=== PATIENT | female | born 1975 | race Caucasian/White ===

== ENCOUNTER → 2017-05-23 | Outpatient (CLI) | payer MEDICAID, SELFPAY ==
[~2017-05-23] MED LIST: ACET50TAOT PO; COMBAER6 INH; FLUT44IN INH; IBUPOTC PO; PRED20TA PO; PROAAER10 INH
== END ==
LOC: M OUTALCOH 12:37
PROVIDERS: ATTEND Psychiatry & Neurology Psychiatry
DX: F10.20 Alcohol dependence, uncomplicated (principal); F15.20 Other stimulant dependence, uncomplicated

== ENCOUNTER 2017-06-01 15:36 | Emergency (ER) | payer OTHER ==
[2017-06-01] MEDS ORDERED: LORazepam 2 MG/ML VIAL (J2060) IM STA (15:49)
[2017-06-01 16:26] LABS: MEAN CORPUSCULAR HGB CONC 34.3 g/dl (32.0-36.5); MEAN CORPUSCULAR VOLUME 93.3 fl (80.0-96.0); RED CELL DISTRIBUTION WIDTH 12.5 % (11.5-14.5); WHITE BLOOD COUNT 19.5 10^3/uL (4.0-10.0)
[2017-06-01 16:56] LABS: ALBUMIN 4.1 GM/DL (3.2-5.2); ALBUMIN/GLOBULIN RATIO 1.14 (1.00-1.93); ALKALINE PHOSPHATASE 75 U/L (45-117); ALT/SGPT 18 U/L (12-78); ANION GAP 11 MEQ/L (8-16); AST/SGOT 13 U/L (15-37); BILIRUBIN,DIRECT < 0.1 MG/DL (0.0-0.2); BILIRUBIN,TOTAL 0.2 MG/DL (0.2-1.0); BLOOD UREA NITROGEN 9 MG/DL (7-18); CALCIUM LEVEL 8.8 MG/DL (8.5-10.1); CARBON DIOXIDE LEVEL 24 MEQ/L (21-32); CHLORIDE LEVEL 109 MEQ/L (98-107); CREATININE FOR GFR 0.76 MG/DL (0.55-1.02); GLOMERULAR FILTRATION RATE > 60.0 (>58); GLUCOSE, FASTING 114 MG/DL (70-105); POTASSIUM SERUM 3.7 MEQ/L (3.5-5.1); SODIUM LEVEL 144 MEQ/L (136-145); TOTAL PROTEIN 7.7 GM/DL (6.4-8.2)
[2017-06-01 21:31] LABS: METHADONE URINE NEGATIVE (NEGATIVE)
[2017-06-02 04:38] VITALS: BP 153/90
== END 2017-06-02 04:44 | disposition home or self-care (01) ==
LOC: M ED 15:36
DX: R45.1 Restlessness and agitation (principal); F10.10 Alcohol abuse, uncomplicated
CPT/HCPCS: 80048; 80076; 80307; 80320; 80329; 84443; 85027; 96372; 99284; J2060

== ENCOUNTER 2017-07-08 09:44 | Observation (INO) | payer OTHER, SELFPAY ==
[~2017-07-08] VITALS: Ht 163.8 cm; Wt 70.2 kg
[2017-07-08] MEDS ORDERED: PROAAER10 INH (10:00)
[2017-07-08] MEDS ORDERED: methylPREDNISolone INJ 125 MG/2 ML VIAL (J2930) IM ONE (10:30)
[2017-07-08] MEDS: IPRATROPIUM 0.5MG/ALBUTEROL 2.5MG INH SOL UD 3ML (DUONEB)(J7620) NEB SCH ×5 (10:37→20:15)
[2017-07-08] MEDS ORDERED: MAG SULF 1GM/100ML (MAG RUN) 1 GM in APPROPRIATE DILUENT 1 EA IV ONE (11:45)
--- NOTE | 2017-07-08 12:08 | REP ---
Clinical: Shortness of breath . Comparison: None . Technique: PA and lateral. Findings: The mediastinum and cardiac silhouette are normal. The lung chatterjee are clear and without acute consolidation, effusion, or pneumothorax. The skeletal structures are intact and normal. Impression: 1. No acute cardiopulmonary process. Signed by Rich Oliveira MD 07/08/2017 12:00 P
[2017-07-08] MEDS ORDERED: IBUPOTC PO (13:56)
[2017-07-08] MEDS ORDERED: ACET50TAOT PO (13:56)
[2017-07-08] MEDS ORDERED: ONDANSETRON 4MG/2ML VIAL (J2405) IV PRN (14:45)
--- NOTE | 2017-07-08 15:04 | HPEPDOC ---
[facility] Medical History & Physical Date of Admission Jul 08, 2017 History and Physical ATTENDING: Dr. Philippe PCP: None CC: SOB HPI: 41yoF with a past medical history significant for Asthma who states she moved back from [place] 2 mo ago. States she has h/o bronchitis last 2 years ago, took steroids at that time. [place] from [place], there is a wood stove where she is staying, she states her step daughter was ill with a cold. She states she felt well last weekend, but then started to feel sick with cold symptoms, subjective fever, non productive cough, clear rhinorrhea, denies CP. Denies any weakness, fatigue, EDWARDS, palpitations, abdominal pain, N/V/D or changes in bowel or bladder habits. Upon presentation to the hospital the patient was found to have asthma exacerbation, thus the hospitalist team was consulted. PMHx: Asthma H/O HTN. No meds as outpt. NIDDM. diet controlled. H/O HLD. diet. Allergic rhinitis peripheral neuropathy (idiopathic per pt) PSHX: tympanostomy tubes tonsillectomy adenoidectomy Rt arm muscle tear/abscess secondary to dog bite. C Section x 2 ankle debridement back surgery tobacco use SOCHX: Resides in: [facility] Marital Status: Kids: 2 Tobacco use: daily smoker ETOH: several drinks weekends. Illicit Drugs: "Sometimes" Recent travel: moved back from [place] 2 mo ago. Advanced directives: none FAMHX: Children: Alive, well ROS: As noted in HPI, otherwise 11pt ROS of systems reviewed and remarkable only for LMP 06/07/17. PE: GEN: 41yoF, appears stated age. Well-nourished, well developed. Alert and oriented x 3. Pleasant, interactive. HEENT: Normocephalic, atraumatic. Pupils are equal, round, and reactive to light. Extraocular movements are intact. No nystagmus appreciated. Sclera are nonicteric. Conjunctiva without injection. Nose midline. Nasal turbinates without bogginess. EACs both patent BL. No facial asymmetry. Moist mucous membranes. Dentition fair. Pharynx pink and moist, no cobblestoning. Neck supple , trachea midline. No lymphadenopathy or thyromegaly appreciated. CHEST: Regular rate and rhythm, +S1, +S2 LUNGS: Decreased BS bilaterally. Diffuse inspiratory/expiratory wheezes. No rales, or rhonchi. Becomes SOB with talking. No accessory muscle use. ABD: Round, soft, non-tender, non-distended. +Bowel sounds throughout. No rebound or guarding. No costovertebral angle tenderness. EXT: Pulses 2+ bilaterally dorsalis pedis and radial. No lower extremity edema appreciated. SKIN: [place], dry, warm. Capillary refill <2sec. No rashes. NEURO: Alert and oriented x 3. Cranial nerves III-XII are intact. No focal deficits appreciated. CXR: 1. No acute cardiopulmonary process. EKG. pending. CBC pending. CMP pending. TSH pending Peripheral smear pending. respiratory panel pending. A&P: 41yoF with a past medical history significant for Asthma who states she moved back from [place] 2 mo ago. States she has h/o bronchitis last 2 years ago, took steroids at that time. States she moved back from [place], there is a wood stove where she is staying, she states her step daughter was ill with a cold. She states she felt well last weekend, but then started to feel sick with cold symptoms, subjective fever, non productive cough, clear rhinorrhea, denies CP. 1. The patient will be admitted to /S for at least [address] Philippe's service. Pt is discussed with Dr Thompson. 2. Asthma exacerbation. Labs pending. Respiratory panel pending. Duonebs. IV Solumedrol 60 Q6hr. Acapella. 3. Tobacco use. Pt adamantly declines Nicoderm/Nicorette gum. 4. H/O HTN. No meds as outpt. monitor. 5. H/O NDDM. Diet control as outpt. DVT prophylaxis. Lovenox. The patient is a Full code Vital Signs Vital Signs Date Time Temp Pulse Resp B/P (MAP) Pulse Ox O2 Delivery O2 Flow Rate FiO2 07/08/17 11:07 94 Room Air 07/08/17 10:44 07/08/17 10:41 88 07/08/17 09:44 97.8 18 Laboratory Data Labs 24H pending at this time. Home Medications Scheduled PRN Acetaminophen (Acetaminophen) 500 Mg Tab, 500 MG PO Q4H PRN for PAIN Albuterol Sulfate (Proair Hfa) 108 Mcg/Act Aer, 2 PUFF INH QID PRN for SHORTNESS OF BREATH Ibuprofen (Ibuprofen) 200 Mg Tab, 600 MG PO Q6H PRN for PAIN Allergies Coded Allergies: No Known Allergies (Unverified , 07/08/17) Marlena Link Jul 08, 2017 15:04
[2017-07-08 15:32] LABS: BASO % 0.2 % (0.0-1.0); IMMATURE GRANULOCYTE % 0.5 % (0-0); LYMPH # 0.6 10^3/uL (1.5-4.5); MEAN CORPUSCULAR HEMOGLOBIN 31.7 pg (27.0-33.0); MEAN CORPUSCULAR HGB CONC 33.7 g/dl (32.0-36.5); MONO # 0.1 10^3/uL (0.0-0.8); MONO % 0.6 % (0.0-5.0); NEUTROPHILS # 11.7 10^3/uL (1.8-7.7); NEUTROPHILS % 93.7 % (36.0-66.0); PLATELET COUNT, AUTOMATED 260 10^3/uL (150-450); RED CELL DISTRIBUTION WIDTH 13.2 % (11.5-14.5); WHITE BLOOD COUNT 12.5 10^3/uL (4.0-10.0)
[2017-07-08 15:36] LABS: REASON FOR REVIEW COMPREHENSIVE REVIEW
[2017-07-08 16:18] LABS: ALBUMIN 3.6 GM/DL (3.2-5.2); ALBUMIN/GLOBULIN RATIO 0.95 (1.00-1.93); ALKALINE PHOSPHATASE 107 U/L (45-117); ALT/SGPT 22 U/L (12-78); ANION GAP 12 MEQ/L (8-16); AST/SGOT 15 U/L (7-37); BILIRUBIN,TOTAL 0.2 MG/DL (0.2-1.0); BLOOD UREA NITROGEN 11 MG/DL (7-18); CALCIUM LEVEL 9.3 MG/DL (8.5-10.1); CARBON DIOXIDE LEVEL 23 MEQ/L (21-32); CHLORIDE LEVEL 103 MEQ/L (98-107); CREATININE FOR GFR 0.98 MG/DL (0.55-1.02); GLOMERULAR FILTRATION RATE > 60.0 (>58); GLUCOSE, FASTING 206 MG/DL (70-105); MAGNESIUM LEVEL 2.1 MG/DL (1.8-2.4); POTASSIUM SERUM 3.7 MEQ/L (3.5-5.1); SODIUM LEVEL 138 MEQ/L (136-145); TOTAL PROTEIN 7.4 GM/DL (6.4-8.2)
[2017-07-08 16:30] VITALS: BP 165/91
[2017-07-08] MEDS: ENOXAPARIN 40 MG/0.4 ML SYRINGE (J1650) SC SCH (16:49)
[2017-07-08] MEDS: methylPREDNISolone INJ 125 MG/2 ML VIAL (J2930) IV SCH ×2 (16:50→22:00)
[2017-07-08] MEDS: ACETAMINOPHEN TAB 650MG DOSE (2X325MG) PO PRN ×2 (16:50→21:59)
[2017-07-08 18:20] VITALS: O2SAT 92
[2017-07-08] MEDS ORDERED: ALPRAZolam 0.25 MG TAB PO PRN (18:30)
[2017-07-08] MEDS ORDERED: OXAZEPAM 10 MG CAP PO PRN (18:45)
[2017-07-08 22:00] VITALS: BP 164/88
[2017-07-08] MEDS ORDERED: BENZONATATE 100 MG CAP PO ONE (23:15)
[2017-07-08] MEDS ORDERED: MAGIC MOUTHWASH SUSPENSION BTL SS ONE (23:15)
[2017-07-08] MEDS: ALBUTEROL SULFATE 2.5 MG/0.5 ML INH NEB SOLN INH PRN (23:37)
[2017-07-09] MEDS: methylPREDNISolone INJ 125 MG/2 ML VIAL (J2930) IV SCH ×2 (05:42→11:02)
[2017-07-09 06:00] VITALS: BP 157/84
[2017-07-09 06:03] VITALS: O2SAT 95
[2017-07-09] MEDS: IPRATROPIUM 0.5MG/ALBUTEROL 2.5MG INH SOL UD 3ML (DUONEB)(J7620) NEB SCH ×2 (06:12→11:18)
[2017-07-09] MEDS: ACETAMINOPHEN TAB 650MG DOSE (2X325MG) PO PRN (06:20)
[2017-07-09 06:24] LABS: BASO % 0.1 % (0.0-1.0); LYMPH # 1.1 10^3/uL (1.5-4.5); LYMPH % 8.4 % (24.0-44.0); MEAN CORPUSCULAR HEMOGLOBIN 32.4 pg (27.0-33.0); MEAN CORPUSCULAR HGB CONC 34.1 g/dl (32.0-36.5); MONO # 0.2 10^3/uL (0.0-0.8); MONO % 1.6 % (0.0-5.0); NEUTROPHILS % 88.9 % (36.0-66.0); PLATELET COUNT, AUTOMATED 258 10^3/uL (150-450); RED CELL DISTRIBUTION WIDTH 13.2 % (11.5-14.5); WHITE BLOOD COUNT 13.5 10^3/uL (4.0-10.0)
[2017-07-09 06:56] LABS: ANION GAP 8 MEQ/L (8-16); BLOOD UREA NITROGEN 12 MG/DL (7-18); CALCIUM LEVEL 9.7 MG/DL (8.5-10.1); CARBON DIOXIDE LEVEL 24 MEQ/L (21-32); CHLORIDE LEVEL 107 MEQ/L (98-107); CREATININE FOR GFR 0.62 MG/DL (0.55-1.02); GLOMERULAR FILTRATION RATE > 60.0 (>58); GLUCOSE, FASTING 151 MG/DL (70-105); MAGNESIUM LEVEL 2.2 MG/DL (1.8-2.4); SODIUM LEVEL 139 MEQ/L (136-145)
[2017-07-09] MEDS: ALBUTEROL SULFATE 2.5 MG/0.5 ML INH NEB SOLN INH PRN (07:25)
[2017-07-09] MEDS: ENOXAPARIN 40 MG/0.4 ML SYRINGE (J1650) SC SCH (09:00)
[2017-07-09] MEDS ORDERED: INFLUENZA QUADRIVALENT PF VACCINE 0.5ML SYRINGE (90686) IM ONE (09:00)
[2017-07-09] MEDS ORDERED: PRED20TA PO (09:49)
[2017-07-09] MEDS ORDERED: FLUT44IN INH (09:49)
[2017-07-09] MEDS ORDERED: COMBAER6 INH (09:49)
--- NOTE | 2017-07-09 10:58 | DS.PDOC ---
Discharge Summary General Date of Admission Jul 08, 2017 at 14:41 Date of Discharge 07/09/2017 Attending Physician: MELISSA FLEMING MD Specialist/Consultants Involve No PCP; will set up appointment with residency clinic Discharge Summary PROCEDURES PERFORMED DURING STAY: None. ADMITTING DIAGNOSES: 1. Asthma exacerbation. DISCHARGE DIAGNOSES: 1. Rhinovirus/enterovirus infection upper respiratory infection 2. Post infectious bronchospasm Vs Initial presentation of Asthma . Will need PFTs as an outpatient. 3. Psychiatric disorder 4. History of alcohol Abuse COMPLICATIONS/CHIEF COMPLAINT: Asthma Attack. HISTORY OF PRESENT ILLNESS: Patient states she has no noted history of asthma. States she has history of bronchitis last 2 years ago, took steroids at that time. States she moved back from [place], there is a wood stove where she is staying , she states her step daughter was ill with a cold. She states she felt well last weekend, but then started to feel sick with cold symptoms, subjective fever , non productive cough, clear rhinorrhea. Upon presentation to the hospital the patient was found to have bronchospasm thought to be post infectious bronchospasm due to upper respiratory tract viral infection Vs initial presentation of asthma. HOSPITAL COURSE: Patient was admitted under observational status. Chest x-ray was performed, findings documented below. Daily CBC with differential and BMP were performed, notable for elevated white count with left shift. Respiratory virus panel from nasal swap showed rhinovirus/enterovirus infection. Patient was treated with methylprednisolone, albuterol, and duoneb albuterol/ipratropium ; undisclosed psychiatric condition (mostly likely anxiety) managed with alprazolam and oxazepam as needed; treated nausea with ondansetron as needed. Patient improved clinically and was stable for discharge. DISCHARGE MEDICATIONS: Please see below. ALLERGIES: Please see below. PHYSICAL EXAMINATION ON DISCHARGE: VITAL SIGNS: Please see below. GENERAL: Well-appearing female seated on bed, appears stated age, well nourished , well developed, no acute distress HEENT: Atraumatic, normocephalic, PERRL, EOMI, oral mucosa appears pink and moist, nasal septum appears midline, nares are patent NECK: Supple, trachea midline, no lymphadenopathy CARDIOVASCULAR EXAMINATION: Normal S1/S2; regular rate; no rubs, murmurs, gallops RESPIRATORY EXAMINATION: Inspiratory and expiratory wheezes ABDOMINAL EXAMINATION: Soft, non-tender, bowel sounds appreciated EXTREMITIES: Moves all extremities SKIN: Non-jaundice, multiple tattoos appreciated NEUROLOGICAL EXAMINATION: CN II-XII grossly intact PSYCHIATRIC EXAMINATION: Very pleasant mood LABORATORY DATA: Please see below. IMAGING: Chest X-Ray Impression: 1. No acute cardiopulmonary process. PROGNOSIS: Good. ACTIVITY: As tolerated. DIET: Regular diet. DISCHARGE PLAN: Home. DISPOSITION: Home. DISCHARGE INSTRUCTIONS: 1. Prednisone 40mg daily for 3 days. 2. Combivent 4 times per day and as needed. 3. Flovent one puff twice a day. 4. Follow up with PCP at residency clinic. 5. Attend pre-scheduled appointment with behavioral health at 2PM on 07/09/2017. ITEMS TO FOLLOWUP ON ON OUTPATIENT: 1. Further evaluation for asthma diagnosis; could consider pulmonary function tests. DISCHARGE CONDITION: Stable. TIME SPENT ON DISCHARGE: Greater than 30 minutes. Vital Signs/I&Os Vital Signs Date Time Temp Pulse Resp B/P (MAP) Pulse Ox O2 Delivery O2 Flow Rate FiO2 07/09/17 06:03 95 Room Air 07/09/17 06:03 102 07/09/17 06:00 97.9 15 157/84 (108) I&O- Last 24 Hours up to 6 AM 07/10/17 06:00 Intake Total 0 ml Output Total 0 ml Balance 0 ml Laboratory Data Labs 24H Laboratory Tests 2 07/08/17 15:25: Immature Granulocyte % (Auto) 0.5H, White Blood Count 12.5H, Red Blood Count 3.82L, Hemoglobin 12.1, Hematocrit 35.9L, Mean Corpuscular Volume 94.0, Mean Corpuscular Hemoglobin 31.7, Mean Corpuscular Hemoglobin Concent 33.7, Red Cell Distribution Width 13.2, Platelet Count 260, Neutrophils (%) (Auto) 93.7H, Lymphocytes (%) (Auto) 5.0L, Monocytes (%) (Auto) 0.6, Eosinophils (%) (Auto) 0.0, Basophils (%) (Auto) 0.2, Neutrophils # (Auto) 11.7H, Lymphocytes # (Auto) 0.6L, Monocytes # (Auto) 0.1, Eosinophils # (Auto) 0.0, Basophils # (Auto) 0.0, Immature Granulocyte # (Auto) 0.1H, Nucleated Red Blood Cells % (auto) 0.0, Differential Slide Review Report, Differential Pathologist's Review COMPREHENSIVE REVIEW, Peripheral Blood Smear Path Consult PERIPHERAL SMEAR, Anion Gap 12, Glomerular Filtration Rate > 60.0, Blood Urea Nitrogen 11, Creatinine 0.98, Sodium Level 138, Potassium Level 3.7, Chloride Level 103, Carbon Dioxide Level 23, Calcium Level 9.3, Aspartate Amino Transf (AST/SGOT) 15 , Alanine Aminotransferase (ALT/SGPT) 22, Alkaline Phosphatase 107, Total Bilirubin 0.2, Total Protein 7.4, Albumin 3.6, Magnesium Level 2.1, Albumin/ Globulin Ratio 0.95L, Thyroid Stimulating Hormone (TSH) 0.424 07/09/17 05:47: Immature Granulocyte % (Auto) 1.0H, White Blood Count 13.5H, Red Blood Count 3.80L, Hemoglobin 12.3, Hematocrit 36.1, Mean Corpuscular Volume 95.0, Mean Corpuscular Hemoglobin 32.4, Mean Corpuscular Hemoglobin Concent 34.1, Red Cell Distribution Width 13.2, Platelet Count 258, Neutrophils (%) (Auto) 88.9H, Lymphocytes (%) (Auto) 8.4L, Monocytes (%) (Auto) 1.6, Eosinophils (%) (Auto) 0.0, Basophils (%) (Auto) 0.1, Neutrophils # (Auto) 12.0H, Lymphocytes # (Auto) 1.1L, Monocytes # (Auto) 0.2, Eosinophils # (Auto) 0.0, Basophils # (Auto) 0.0, Immature Granulocyte # (Auto) 0.1H, Nucleated Red Blood Cells % (auto) 0.0, Anion Gap 8, Glomerular Filtration Rate > 60.0, Blood Urea Nitrogen 12, Creatinine 0.62, Sodium Level 139, Potassium Level 4.0, Chloride Level 107, Carbon Dioxide Level 24, Calcium Level 9.7, Magnesium Level 2.2 CBC/BMP Laboratory Tests 07/08/17 15:25 Red Blood Count 3.82 L, Mean Corpuscular Volume 94.0, Mean Corpuscular Hemoglobin 31.7, Mean Corpuscular Hemoglobin Concent 33.7, Red Cell Distribution Width 13.2, Neutrophils (%) (Auto) 93.7 H, Lymphocytes (%) (Auto) 5.0 L, Monocytes (%) (Auto) 0.6, Eosinophils (%) (Auto) 0.0, Basophils (%) (Auto ) 0.2, Neutrophils # (Auto) 11.7 H, Lymphocytes # (Auto) 0.6 L, Monocytes # ( Auto) 0.1, Eosinophils # (Auto) 0.0, Basophils # (Auto) 0.0, Calcium Level 9.3, Aspartate Amino Transf (AST/SGOT) 15, Alanine Aminotransferase (ALT/SGPT) 22, Alkaline Phosphatase 107, Total Bilirubin 0.2, Total Protein 7.4, Albumin 3.6 07/09/17 05:47 Red Blood Count 3.80 L, Mean Corpuscular Volume 95.0, Mean Corpuscular Hemoglobin 32.4, Mean Corpuscular Hemoglobin Concent 34.1, Red Cell Distribution Width 13.2, Neutrophils (%) (Auto) 88.9 H, Lymphocytes (%) (Auto) 8.4 L, Monocytes (%) (Auto) 1.6, Eosinophils (%) (Auto) 0.0, Basophils (%) (Auto ) 0.1, Neutrophils # (Auto) 12.0 H, Lymphocytes # (Auto) 1.1 L, Monocytes # ( Auto) 0.2, Eosinophils # (Auto) 0.0, Basophils # (Auto) 0.0, Calcium Level 9.7 Microbiology Microbiology 07/08/17 Respiratory Virus Panel (PCR) (NOEL) - Final, Complete Human Rhinovirus/Enterovirus Discharge Medications Scheduled Albuterol/Ipratropium (Combivent Respimat 20-100 Mcg/Act) 1 Aer Aer, 1 PUFF INH QID Fluticasone Propionate (Flovent Hfa) 44 Mcg/Act Aer, 2 MCG INH BID Prednisone (Prednisone) 20 Mg Tab, 40 MG PO DAILY Scheduled PRN Albuterol Sulfate (Proair Hfa) 108 Mcg/Act Aer, 2 PUFF INH QID PRN for SHORTNESS OF BREATH, (Reported) Allergies Coded Allergies: No Known Allergies (Unverified , 07/08/17) ROSSY BAKER Jul 09, 2017 10:21 MELISSA FLEMING MD Jul 14, 2017 13:18
--- NOTE | 2017-07-11 00:11 | ECGEPIP ---
Stationary ECG Study 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 No significant changes but patient then was more tachycardic Electronically Signed On 07-11-2017 0:11:10 EST by Beto Taveras
== END 2017-07-09 11:42 | disposition home or self-care (01) ==
LOC: M ED 09:44 → M ED INP 14:41 → M MSPAV 16:00
PROVIDERS: ADMIT Internal Medicine; ATTEND Internal Medicine Nephrology
DX: J45.901 Unspecified asthma with (acute) exacerbation (principal); I10 Essential (primary) hypertension; E11.42 Type 2 diabetes mellitus with diabetic polyneuropathy; E78.5 Hyperlipidemia, unspecified; J30.9 Allergic rhinitis, unspecified; F09 Unspecified mental disorder due to known physiological condition; F17.210 Nicotine dependence, cigarettes, uncomplicated; F10.10 Alcohol abuse, uncomplicated; Z79.899 Other long term (current) drug therapy; Z23 Encounter for immunization
CPT/HCPCS: 36415; 71020; 80048; 80053; 83735; 84443; 85025; 87486; 87581; 87633; 87798; 90686; 93000; 94640; 96372; 96374; 96376; 99284; J1650; J2930; J3475

== ENCOUNTER 2017-07-09 21:26 | Emergency (ER) | payer OTHER, SELFPAY ==
[~2017-07-09] VITALS: Ht 162.6 cm; Wt 71.4 kg
[2017-07-09] MEDS: IPRATROPIUM 0.5MG/ALBUTEROL 2.5MG INH SOL UD 3ML (DUONEB)(J7620) NEB PRN (21:46)
[2017-07-09] MEDS ORDERED: HALOPERIDOL 5 MG/ML VIAL (J1630) IM STA (22:14)
[2017-07-09] MEDS ORDERED: LORazepam 2 MG/ML VIAL (J2060) IV STA (22:14)
[2017-07-09] MEDS ORDERED: diphenhydrAMINE INJ 50MG/ML VIAL (J1200) IM STA (22:28)
[2017-07-09 23:34] LABS: MEAN CORPUSCULAR HEMOGLOBIN 32.8 pg (27.0-33.0); MEAN CORPUSCULAR HGB CONC 33.6 g/dl (32.0-36.5); MEAN CORPUSCULAR VOLUME 97.5 fl (80.0-96.0); PLATELET COUNT, AUTOMATED 268 10^3/uL (150-450); RED CELL DISTRIBUTION WIDTH 13.8 % (11.5-14.5); WHITE BLOOD COUNT 20.5 10^3/uL (4.0-10.0)
[2017-07-10 00:25] LABS: ALBUMIN 3.5 GM/DL (3.2-5.2); ALBUMIN/GLOBULIN RATIO 0.95 (1.00-1.93); ALKALINE PHOSPHATASE 88 U/L (45-117); ALT/SGPT 22 U/L (12-78); ANION GAP 12 MEQ/L (8-16); AST/SGOT 20 U/L (7-37); BILIRUBIN,DIRECT < 0.1 MG/DL (0.0-0.2); BILIRUBIN,TOTAL 0.1 MG/DL (0.2-1.0); BLOOD UREA NITROGEN 17 MG/DL (7-18); CALCIUM LEVEL 8.8 MG/DL (8.5-10.1); CARBON DIOXIDE LEVEL 22 MEQ/L (21-32); CHLORIDE LEVEL 111 MEQ/L (98-107); CREATININE FOR GFR 0.71 MG/DL (0.55-1.02); GLOMERULAR FILTRATION RATE > 60.0 (>58); GLUCOSE, FASTING 132 MG/DL (70-105); METHADONE URINE NEGATIVE (NEGATIVE); POTASSIUM SERUM 4.3 MEQ/L (3.5-5.1); SODIUM LEVEL 145 MEQ/L (136-145); TOTAL PROTEIN 7.2 GM/DL (6.4-8.2)
[2017-07-10 13:50] VITALS: BP 126/89
--- NOTE | 2017-07-10 14:15 | ECGEPIP ---
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
== END 2017-07-10 13:55 | disposition home or self-care (01) ==
LOC: M ED 21:26
DX: F10.120 Alcohol abuse with intoxication, uncomplicated (principal); F33.2 Major depressive disorder, recurrent severe without psychotic features; Y90.1 Blood alcohol level of 20-39 mg/100 ml; I10 Essential (primary) hypertension; E11.9 Type 2 diabetes mellitus without complications; J45.909 Unspecified asthma, uncomplicated; G62.9 Polyneuropathy, unspecified; F17.210 Nicotine dependence, cigarettes, uncomplicated; F19.20 Other psychoactive substance dependence, uncomplicated
CPT/HCPCS: 36415; 80048; 80076; 80307; 80320; 80329; 82550; 84443; 85027; 93000; 94640; 96372; 96374; 99285; J1200; J1630; J2060

== ENCOUNTER 2017-07-19 12:32 | Emergency (ER) | payer OTHER ==
[~2017-07-19] VITALS: Ht 162.6 cm; Wt 70.5 kg
[2017-07-19] MEDS ORDERED: TRIL150T PO (12:44)
[2017-07-19] MEDS ORDERED: EFFE37.527 PO (12:44)
[2017-07-19] MEDS ORDERED: IPRATROPIUM 0.5MG/ALBUTEROL 2.5MG INH SOL UD 3ML (DUONEB)(J7620) NEB ONE (14:30)
--- NOTE | 2017-07-19 14:38 | REP ---
Clinical: Dyspnea. Rule out pneumonia . Comparison: 07/08/2017 . Technique: PA and lateral. Findings: The mediastinum and cardiac silhouette are normal. The lung chatterjee are clear and without acute consolidation, effusion, or pneumothorax. The skeletal structures are intact and normal. Impression: 1. No acute cardiopulmonary process. Signed by Rich Oliveira MD 07/19/2017 02:30 P
[2017-07-19] MEDS ORDERED: PRED20TA PO (14:54)
[2017-07-19] MEDS ORDERED: BENZ200C53 PO (14:54)
[2017-07-19] MEDS ORDERED: FLON1SPR (14:54)
[2017-07-19 14:55] VITALS: BP 141/86
== END 2017-07-19 15:00 | disposition home or self-care (01) ==
LOC: M ED 12:32
DX: J06.9 Acute upper respiratory infection, unspecified (principal); J98.01 Acute bronchospasm; F17.210 Nicotine dependence, cigarettes, uncomplicated; Z79.899 Other long term (current) drug therapy

== ENCOUNTER 2017-09-24 22:55 | Emergency (ER) | payer OTHER, SELFPAY ==
[2017-09-24] MEDS: PIPERACILLIN/TAZOBACTAM SOD 3.375 GM in APPROPRIATE DILUENT 1 EA IV (23:46)
[2017-09-24] MEDS: NS 1,000 ML IV (23:47)
[2017-09-25 00:17] LABS: HEMATOCRIT 35.5 % (36.0-47.0); HEMOGLOBIN 11.9 g/dl (12.0-16.0); MEAN CORPUSCULAR HGB CONC 33.5 g/dl (32.0-36.5); MEAN CORPUSCULAR VOLUME 95.4 fl (80.0-96.0); PLATELET COUNT, AUTOMATED 248 10^3/uL (150-450); RED BLOOD COUNT 3.72 10^6/uL (4.00-5.40); RED CELL DISTRIBUTION WIDTH 11.3 % (11.5-14.5); WHITE BLOOD COUNT 7.7 10^3/uL (4.0-10.0)
[2017-09-25 00:18] LABS: ALBUMIN 3.4 GM/DL (3.2-5.2); ALBUMIN/GLOBULIN RATIO 0.89 (1.00-1.93); ALKALINE PHOSPHATASE 74 U/L (45-117); ALT/SGPT 17 U/L (12-78); ANION GAP 8 MEQ/L (8-16); AST/SGOT 13 U/L (7-37); BILIRUBIN,TOTAL < 0.1 MG/DL (0.2-1.0); BLOOD UREA NITROGEN 11 MG/DL (7-18); CALCIUM LEVEL 8.8 MG/DL (8.5-10.1); CARBON DIOXIDE LEVEL 26 MEQ/L (21-32); CHLORIDE LEVEL 107 MEQ/L (98-107); CREATININE FOR GFR 0.66 MG/DL (0.55-1.30); GLOMERULAR FILTRATION RATE > 60.0 (>58); GLUCOSE, FASTING 90 MG/DL (70-100); POTASSIUM SERUM 3.6 MEQ/L (3.5-5.1); SODIUM LEVEL 141 MEQ/L (136-145); TOTAL PROTEIN 7.2 GM/DL (6.4-8.2)
[2017-09-25 00:22] LABS: ADD MANUAL DIFFER YES; DIFF SLIDE NUMBER 335; POSITIVE MORPH POS FLAG
[2017-09-25] MEDS: LIDOCAINE 2% MDV 20 ML VIAL SC (00:30)
[2017-09-25 00:46] LABS: ATYPICAL LYMPH 2 % (0-5); EOSINOPHILS 2 % (0-5); LYMPHOCYTES 39 % (16-52); MONOCYTES 3 % (0-8); NEUTROPHILS 54 % (35-75); PLATELET ESTIMATE NORMAL (NORMAL)
[2017-09-25] MEDS: PERCOCET 5MG/325MG TAB PO (01:13)
== END 2017-09-25 01:27 | disposition home or self-care (01) ==
LOC: M ED 22:55
DX: L02.414 Cutaneous abscess of left upper limb (principal); L03.114 Cellulitis of left upper limb; F17.200 Nicotine dependence, unspecified, uncomplicated
CPT/HCPCS: J2543

== ENCOUNTER 2017-10-18 16:29 | Emergency (ER) | payer OTHER ==
[2017-10-18 18:18] LABS: KETONE, URINE AUTO RFX NEGATIVE (NEGATIVE); LEUKOCYTE ESTERASE UR AUTO RFX NEGATIVE (NEGATIVE); NITRITE, URINE AUTO RFX NEGATIVE (NEGATIVE); RBC, URINE AUTO RFX 0 /HPF (0-3); SPECIFIC GRAVITY UR AUTO RFX 1.009 (1.002-1.035); SQUAM EPITHELIAL CELL UR AURFX 1 /HPF (0-6); WBC, URINE AUTO RFX 1 /HPF (0-3)
[2017-10-18] MEDS: CYCLOBENZAPRINE 10 MG TAB PO (19:00)
[2017-10-18] MEDS: PERCOCET 5MG/325MG TAB PO (19:00)
== END 2017-10-18 20:03 | disposition home or self-care (01) ==
LOC: M ED 16:29
DX: S39.012A Strain of muscle, fascia and tendon of lower back, initial encounter (principal); X58.XXXA Exposure to other specified factors, initial encounter; Y92.89 Other specified places as the place of occurrence of the external cause; E11.40 Type 2 diabetes mellitus with diabetic neuropathy, unspecified; J45.909 Unspecified asthma, uncomplicated; F41.9 Anxiety disorder, unspecified; F32.9 Major depressive disorder, single episode, unspecified; M54.2 Cervicalgia; F17.210 Nicotine dependence, cigarettes, uncomplicated; Z88.5 Allergy status to narcotic agent
CPT/HCPCS: 81001

== ENCOUNTER → 2017-11-11 | Outpatient (CLI) | payer OTHER | LOC: M RAD 14:41 | DX: N63.21 Unspecified lump in the left breast, upper outer quadrant (principal) | CPT/HCPCS: 77066 ==

== ENCOUNTER → 2017-12-17 | Outpatient (REF) | payer OTHER, MEDICAID ==
[2017-12-17 18:24] LABS: BASO % 0.3 % (0.0-1.0); HEMATOCRIT 37.8 % (36.0-47.0); HEMOGLOBIN 12.7 g/dl (12.0-15.5); IMMATURE GRANULOCYTE % 0.3 % (0-3.0); LYMPH # 2.1 10^3/uL (1.5-4.5); LYMPH % 22.4 % (24.0-44.0); MEAN CORPUSCULAR HEMOGLOBIN 31.6 pg (27.0-33.0); MEAN CORPUSCULAR HGB CONC 33.6 g/dl (32.0-36.5); MONO # 0.5 10^3/uL (0.0-0.8); MONO % 5.1 % (0.0-5.0); NEUTROPHILS # 6.8 10^3/uL (1.8-7.7); NEUTROPHILS % 71.9 % (36.0-66.0); PLATELET COUNT, AUTOMATED 224 10^3/uL (150-450); RED BLOOD COUNT 4.02 10^6/uL (4.00-5.40); RED CELL DISTRIBUTION WIDTH 12.1 % (11.5-14.5); WHITE BLOOD COUNT 9.4 10^3/uL (4.0-10.0)
[2017-12-17 18:51] LABS: ESTIMATED AVERAGE GLUCOSE 100 MG/DL (60-110); HEMOGLOBIN A1c 5.1 %
[2017-12-17 19:17] LABS: ALBUMIN/GLOBULIN RATIO 1.14 (1.00-1.93); ALKALINE PHOSPHATASE 88 U/L (45-117); ALT/SGPT 23 U/L (12-78); ANION GAP 8 MEQ/L (8-16); AST/SGOT 21 U/L (7-37); BILIRUBIN,TOTAL 0.2 MG/DL (0.2-1.0); BLOOD UREA NITROGEN 9 MG/DL (7-18); CALCIUM LEVEL 8.8 MG/DL (8.5-10.1); CARBON DIOXIDE LEVEL 26 MEQ/L (21-32); CHLORIDE LEVEL 106 MEQ/L (98-107); CHOLESTEROL LEVEL 176 MG/DL (<200); CREATININE FOR GFR 0.62 MG/DL (0.55-1.30); GLOMERULAR FILTRATION RATE > 60.0 (>58); GLUCOSE, FASTING 90 MG/DL (70-100); HDL CHOLESTEROL 44 MG/DL (>40); LDL CHOLESTEROL 101.8 MG/DL (<100); NON-HDL-C 132 MG/DL; POTASSIUM SERUM 3.8 MEQ/L (3.5-5.1); SODIUM LEVEL 140 MEQ/L (136-145); TOTAL PROTEIN 7.5 GM/DL (6.4-8.2); TRIGLYCERIDES LEVEL 151 MG/DL (<150)
== END ==
LOC: M LAB REF 17:22
DX: E11.9 Type 2 diabetes mellitus without complications (principal); I10 Essential (primary) hypertension

== ENCOUNTER 2018-01-06 00:58 | Emergency (ER) | payer OTHER, MEDICAID ==
[2018-01-06] MEDS: diphenhydrAMINE INJ 50MG/ML VIAL (J1200) IV ×2 (01:26)
[2018-01-06] MEDS: methylPREDNISolone INJ 125 MG/2 ML VIAL (J2930) IV ×2 (01:30)
[2018-01-06] MEDS: FAMOTIDINE IV BAG 20 MG in APPROPRIATE DILUENT 1 EA IV (01:30)
[2018-01-06 01:37] LABS: BASO % 0.3 % (0.0-1.0); HEMOGLOBIN 12.3 g/dl (12.0-15.5); IMMATURE GRANULOCYTE % 0.2 % (0-3.0); LYMPH # 2.1 10^3/uL (1.5-4.5); LYMPH % 21.9 % (24.0-44.0); MEAN CORPUSCULAR HEMOGLOBIN 31.8 pg (27.0-33.0); MEAN CORPUSCULAR HGB CONC 34.2 g/dl (32.0-36.5); MONO # 0.6 10^3/uL (0.0-0.8); MONO % 6.7 % (0.0-5.0); NEUTROPHILS # 6.7 10^3/uL (1.8-7.7); NEUTROPHILS % 70.9 % (36.0-66.0); PLATELET COUNT, AUTOMATED 248 10^3/uL (150-450); RED BLOOD COUNT 3.87 10^6/uL (4.00-5.40); RED CELL DISTRIBUTION WIDTH 11.8 % (11.5-14.5); WHITE BLOOD COUNT 9.5 10^3/uL (4.0-10.0)
[2018-01-06] MEDS: NS 1,000 ML IV ×2 (01:45)
[2018-01-06 01:55] LABS: ANION GAP 8 MEQ/L (8-16); BLOOD UREA NITROGEN 12 MG/DL (7-18); C REACTIVE PROTEIN QUANTITATIV 3.96 MG/DL (0.00-0.30); CALCIUM LEVEL 8.7 MG/DL (8.5-10.1); CARBON DIOXIDE LEVEL 26 MEQ/L (21-32); CHLORIDE LEVEL 105 MEQ/L (98-107); CREATININE FOR GFR 0.63 MG/DL (0.55-1.30); GLOMERULAR FILTRATION RATE > 60.0 (>58); GLUCOSE, FASTING 110 MG/DL (70-100); POTASSIUM SERUM 4.1 MEQ/L (3.5-5.1); SODIUM LEVEL 139 MEQ/L (136-145)
[2018-01-06 01:56] LABS: ERYTHROCYTE SEDIMENTATION RATE 23 mm/hr (0-20)
[2018-01-06] MEDS: KETOROLAC 30 MG/ML VIAL (J1885) IV ×2 (02:15)
== END 2018-01-06 03:22 | disposition home or self-care (01) ==
LOC: M ED 00:58
DX: S40.862A Insect bite (nonvenomous) of left upper arm, initial encounter (principal); X58.XXXA Exposure to other specified factors, initial encounter; Y92.89 Other specified places as the place of occurrence of the external cause; Y93.89 Activity, other specified; Y99.9 Unspecified external cause status; G56.93 Unspecified mononeuropathy of bilateral upper limbs; F17.200 Nicotine dependence, unspecified, uncomplicated; Z79.899 Other long term (current) drug therapy; Z88.5 Allergy status to narcotic agent
CPT/HCPCS: J1200

== ENCOUNTER 2018-01-13 19:54 | Emergency (ER) | payer OTHER ==
[2018-01-13 22:14] LABS: BASO % 0.2 % (0.0-1.0); EOS % 0.2 % (0.0-3.0); HEMOGLOBIN 12.8 g/dl (12.0-15.5); IMMATURE GRANULOCYTE % 0.2 % (0-3.0); LYMPH # 2.6 10^3/uL (1.5-4.5); LYMPH % 45.4 % (24.0-44.0); MEAN CORPUSCULAR HEMOGLOBIN 31.8 pg (27.0-33.0); MEAN CORPUSCULAR HGB CONC 33.7 g/dl (32.0-36.5); MEAN CORPUSCULAR VOLUME 94.3 fl (80.0-96.0); MONO # 0.5 10^3/uL (0.0-0.8); MONO % 8.5 % (0.0-5.0); NEUTROPHILS # 2.6 10^3/uL (1.8-7.7); NEUTROPHILS % 45.5 % (36.0-66.0); PLATELET COUNT, AUTOMATED 260 10^3/uL (150-450); RED BLOOD COUNT 4.03 10^6/uL (4.00-5.40); RED CELL DISTRIBUTION WIDTH 11.7 % (11.5-14.5); WHITE BLOOD COUNT 5.7 10^3/uL (4.0-10.0)
[2018-01-13] MEDS: diphenhydrAMINE INJ 50MG/ML VIAL (J1200) IV ×2 (22:28)
[2018-01-13 22:33] LABS: ANION GAP 6 MEQ/L (8-16); BLOOD UREA NITROGEN 13 MG/DL (7-18); CALCIUM LEVEL 8.8 MG/DL (8.5-10.1); CARBON DIOXIDE LEVEL 29 MEQ/L (21-32); CHLORIDE LEVEL 107 MEQ/L (98-107); CREATININE FOR GFR 0.73 MG/DL (0.55-1.30); GLOMERULAR FILTRATION RATE > 60.0 (>58); GLUCOSE, FASTING 92 MG/DL (70-100); POTASSIUM SERUM 4.4 MEQ/L (3.5-5.1); SODIUM LEVEL 142 MEQ/L (136-145)
== END 2018-01-13 23:21 | disposition home or self-care (01) ==
LOC: M ED 19:54
DX: L02.414 Cutaneous abscess of left upper limb (principal); J45.909 Unspecified asthma, uncomplicated; F41.9 Anxiety disorder, unspecified; F32.9 Major depressive disorder, single episode, unspecified; Z85.41 Personal history of malignant neoplasm of cervix uteri; F17.200 Nicotine dependence, unspecified, uncomplicated; Z79.899 Other long term (current) drug therapy; Z79.2 Long term (current) use of antibiotics; Z79.52 Long term (current) use of systemic steroids; Z88.5 Allergy status to narcotic agent; Z88.8 Allergy status to other drugs, medicaments and biological substances
CPT/HCPCS: J1200

== ENCOUNTER 2018-01-25 18:43 | Emergency (ER) | payer OTHER ==
[2018-01-25] MEDS ORDERED: MORPHINE 4 MG/ML 1ML VIAL/SYRINGE (J2270) IV (20:00)
[2018-01-25] MEDS: ONDANSETRON 4MG/2ML VIAL (J2405) IV (20:51)
[2018-01-25] MEDS: PANTOPRAZOLE 40MG INJ (PROTONIX) (C9113) IV (20:51)
[2018-01-25] MEDS: NS 1,000 ML IV (20:52)
[2018-01-25 20:59] LABS: HEMATOCRIT 37.5 % (36.0-47.0); HEMOGLOBIN 12.4 g/dl (12.0-15.5); MEAN CORPUSCULAR HEMOGLOBIN 31.2 pg (27.0-33.0); MEAN CORPUSCULAR HGB CONC 33.1 g/dl (32.0-36.5); MEAN CORPUSCULAR VOLUME 94.2 fl (80.0-96.0); PLATELET COUNT, AUTOMATED 181 10^3/uL (150-450); RED BLOOD COUNT 3.98 10^6/uL (4.00-5.40); RED CELL DISTRIBUTION WIDTH 11.9 % (11.5-14.5); WHITE BLOOD COUNT 4.4 10^3/uL (4.0-10.0)
[2018-01-25 21:00] LABS: ADD MANUAL DIFFER YES; DIFF SLIDE NUMBER 167; POSITIVE MORPH POS FLAG
[2018-01-25 21:05] LABS: KETONE, URINE AUTO RFX 1+ mg/dL (NEGATIVE); LEUKOCYTE ESTERASE UR AUTO RFX NEGATIVE (NEGATIVE); MUCUS, URINE RFX SMALL (NEGATIVE); NITRITE, URINE AUTO RFX NEGATIVE (NEGATIVE); RBC, URINE AUTO RFX 3 /HPF (0-3); SPECIFIC GRAVITY UR AUTO RFX 1.026 (1.002-1.035); SQUAM EPITHELIAL CELL UR AURFX 1 /HPF (0-6); WBC, URINE AUTO RFX 0 /HPF (0-3)
[2018-01-25 21:20] LABS: CONTROL LINE HCG INT CTR LINE PRESENT; HCG, SERUM QUALITATIVE NEGATIVE (NEGATIVE)
[2018-01-25 21:24] LABS: ALBUMIN 3.7 GM/DL (3.2-5.2); ALBUMIN/GLOBULIN RATIO 0.93 (1.00-1.93); ALKALINE PHOSPHATASE 81 U/L (45-117); ALT/SGPT 20 U/L (12-78); AMYLASE 29 U/L (25-115); ANION GAP 6 MEQ/L (8-16); AST/SGOT 14 U/L (7-37); BILIRUBIN,DIRECT 0.1 MG/DL (0.0-0.2); BILIRUBIN,TOTAL 0.5 MG/DL (0.2-1.0); BLOOD UREA NITROGEN 14 MG/DL (7-18); CALCIUM LEVEL 8.7 MG/DL (8.5-10.1); CARBON DIOXIDE LEVEL 29 MEQ/L (21-32); CHLORIDE LEVEL 104 MEQ/L (98-107); CREATININE FOR GFR 0.56 MG/DL (0.55-1.30); GLOMERULAR FILTRATION RATE > 60.0 (>58); GLUCOSE, FASTING 84 MG/DL (70-100); LIPASE 81 U/L (73-393); POTASSIUM SERUM 3.8 MEQ/L (3.5-5.1); SODIUM LEVEL 139 MEQ/L (136-145); TOTAL PROTEIN 7.7 GM/DL (6.4-8.2)
[2018-01-25 21:37] LABS: ATYPICAL LYMPH 2 % (0-5); LYMPHOCYTES 35 % (16-52); MONOCYTES 12 % (0-8); NEUTROPHILS 51 % (35-75); PLATELET ESTIMATE NORMAL (NORMAL)
== END 2018-01-25 21:58 | disposition home or self-care (01) ==
LOC: M ED 18:43
DX: A08.4 Viral intestinal infection, unspecified (principal); I10 Essential (primary) hypertension; F17.200 Nicotine dependence, unspecified, uncomplicated; Z88.5 Allergy status to narcotic agent; Z79.899 Other long term (current) drug therapy
CPT/HCPCS: C9113

== ENCOUNTER 2018-02-25 15:32 | Emergency (ER) | payer OTHER ==
[2018-02-25] MEDS: methylPREDNISolone INJ 125 MG/2 ML VIAL (J2930) IV (18:05)
[2018-02-25 18:16] LABS: BASO % 0.4 % (0.0-1.0); EOS % 0.6 % (0.0-3.0); HEMATOCRIT 40.3 % (36.0-47.0); HEMOGLOBIN 13.6 g/dl (12.0-15.5); IMMATURE GRANULOCYTE % 0.3 % (0-3.0); LYMPH # 2.3 10^3/uL (1.5-4.5); LYMPH % 33.8 % (24.0-44.0); MEAN CORPUSCULAR HEMOGLOBIN 31.9 pg (27.0-33.0); MEAN CORPUSCULAR HGB CONC 33.7 g/dl (32.0-36.5); MEAN CORPUSCULAR VOLUME 94.6 fl (80.0-96.0); MONO # 0.7 10^3/uL (0.0-0.8); MONO % 9.8 % (0.0-5.0); NEUTROPHILS # 3.8 10^3/uL (1.8-7.7); NEUTROPHILS % 55.1 % (36.0-66.0); PLATELET COUNT, AUTOMATED 200 10^3/uL (150-450); RED BLOOD COUNT 4.26 10^6/uL (4.00-5.40); RED CELL DISTRIBUTION WIDTH 12.9 % (11.5-14.5); WHITE BLOOD COUNT 6.9 10^3/uL (4.0-10.0)
[2018-02-25 19:35] LABS: ANION GAP 9 MEQ/L (8-16); BLOOD UREA NITROGEN 12 MG/DL (7-18); C REACTIVE PROTEIN QUANTITATIV 3.68 MG/DL (0.00-0.30); CALCIUM LEVEL 8.5 MG/DL (8.5-10.1); CARBON DIOXIDE LEVEL 23 MEQ/L (21-32); CHLORIDE LEVEL 107 MEQ/L (98-107); CREATININE FOR GFR 0.56 MG/DL (0.55-1.30); GLOMERULAR FILTRATION RATE > 60.0 (>58); GLUCOSE, FASTING 82 MG/DL (70-100); POTASSIUM SERUM 3.7 MEQ/L (3.5-5.1); SODIUM LEVEL 139 MEQ/L (136-145)
[2018-02-25] MEDS ORDERED: ISOVUE-370 76% 100ML VIAL (Q9967) As Ordered (19:39)
[2018-02-25] MEDS: OXYCODONE/APAP 5MG/325MG(BULK FOR ED) 1 TABLET PO (20:44)
== END 2018-02-25 20:49 | disposition home or self-care (01) ==
LOC: M ED 15:32
DX: R22.0 Localized swelling, mass and lump, head (principal); K08.89 Other specified disorders of teeth and supporting structures; F17.210 Nicotine dependence, cigarettes, uncomplicated; G62.9 Polyneuropathy, unspecified; Z88.5 Allergy status to narcotic agent; Z79.899 Other long term (current) drug therapy
CPT/HCPCS: Q9967

== ENCOUNTER 2018-04-13 22:28 | Emergency (ER) | payer OTHER | END 2018-04-14 02:37 | disposition home or self-care (01) | LOC: M ED 22:28 | DX: M79.644 Pain in right finger(s) (principal); Z79.899 Other long term (current) drug therapy; Z88.5 Allergy status to narcotic agent; Z88.8 Allergy status to other drugs, medicaments and biological substances | CPT/HCPCS: 73130 ==

== ENCOUNTER → 2019-02-17 | Outpatient (CLI) | payer MEDICAID ==
[~2019-02-17] MED LIST changes: +ACET500T15 PO; -ACET50TAOT PO; +AUGM875T28 PO; +BENZ-18 PO; +BENZ200C70 PO; +CYCL10TA PO; +DULO1CAP; +EFFE37.5 PO; +FLON1SPR; +GABA-1171; +HYDR-3363 PO; +IBUP80TA PO; +MELO15TA28; +NAPR-885 PO; +PERC5TAB12 PO; +PSEU30TA21; +TRIL150T PO; +VITA50005; +ZOFR4TAB14 PO
== END ==
LOC: M OUTALCOH 09:16
PROVIDERS: ATTEND Psychiatry & Neurology Psychiatry
DX: F15.20 Other stimulant dependence, uncomplicated (principal)

== ENCOUNTER → 2019-02-19 | Outpatient (REF) | payer MEDICAID ==
[2019-02-19 18:34] LABS: BASO % 0.3 % (0.0-1.0); EOS % 0.2 % (0.0-3.0); HEMATOCRIT 36.1 % (36.0-47.0); HEMOGLOBIN 12.1 g/dl (12.0-15.5); LYMPH # 2.4 10^3/uL (1.5-4.5); LYMPH % 41.7 % (24.0-44.0); MEAN CORPUSCULAR HEMOGLOBIN 33.4 pg (27.0-33.0); MEAN CORPUSCULAR HGB CONC 33.5 g/dl (32.0-36.5); MEAN CORPUSCULAR VOLUME 99.7 fl (80.0-96.0); MONO # 0.4 10^3/uL (0.0-0.8); NEUTROPHILS # 2.9 10^3/uL (1.8-7.7); NEUTROPHILS % 50.5 % (36.0-66.0); PLATELET COUNT, AUTOMATED 163 10^3/uL (150-450); RED BLOOD COUNT 3.62 10^6/uL (4.00-5.40); WHITE BLOOD COUNT 5.8 10^3/uL (4.0-10.0)
[2019-02-19 18:45] LABS: ALBUMIN 3.7 GM/DL (3.2-5.2); ALT/SGPT 30 U/L (12-78); BILIRUBIN,TOTAL 0.2 MG/DL (0.2-1.0); BLOOD UREA NITROGEN 11 MG/DL (7-18); CALCIUM LEVEL 8.6 MG/DL (8.5-10.1); CARBON DIOXIDE LEVEL 27 MEQ/L (21-32); CHLORIDE LEVEL 108 MEQ/L (98-107); CHOLESTEROL LEVEL 162 MG/DL (<200); CREATININE FOR GFR 0.66 MG/DL (0.55-1.30); FREE T4 0.86 NG/DL (0.76-1.46); GLOMERULAR FILTRATION RATE > 60.0 (>58); GLUCOSE, FASTING 92 MG/DL (70-100); HDL CHOLESTEROL 50 MG/DL (>40); LDL CHOLESTEROL 82 MG/DL (<100); NON-HDL-C 112 MG/DL; POTASSIUM SERUM 4.3 MEQ/L (3.5-5.1); SODIUM LEVEL 141 MEQ/L (136-145); THYROID STIMULATING HORMONE 0.329 uIU/ML (0.358-3.740); TOTAL PROTEIN 6.7 GM/DL (6.4-8.2); TRIGLYCERIDES LEVEL 149 MG/DL (<150)
[2019-02-19 18:47] LABS: TOTAL 25(OH) VITAMIN D 21.7 NG/ML (30.0-100.0)
[2019-02-19 18:48] LABS: APPEARANCE, URINE CLEAR (CLEAR); BACTERIA, URINE AUTO NEGATIVE (NEGATIVE); BILIRUBIN, URINE AUTO NEGATIVE (NEGATIVE); BLOOD, URINE BLOOD NEGATIVE (NEGATIVE); COLOR, URINE YELLOW (YELLOW); GLUCOSE, URINE (UA) AUTO NEGATIVE (NEGATIVE); KETONE, URINE AUTO NEGATIVE (NEGATIVE); LEUKOCYTE ESTERASE, URINE AUTO NEGATIVE (NEGATIVE); MUCUS, URINE SMALL (NEGATIVE); NITRITE, URINE AUTO NEGATIVE (NEGATIVE); PROTEIN, URINE AUTO NEGATIVE (NEGATIVE); RBC, URINE AUTO 0 /HPF (0-3); SQUAMOUS EPITHELIAL CELL UR AU 2 /HPF (0-6); UROBILINOGEN, URINE AUTO 0.2 mg/dL (0.0-2.0); WBC, URINE AUTO 0 /HPF (0-3)
[2019-02-19 18:58] LABS: HEMOGLOBIN A1c 5.7 %
== END ==
LOC: M LAB REF 17:29
PROVIDERS: ATTEND Nurse Practitioner Family
DX: I10 Essential (primary) hypertension (principal); E78.5 Hyperlipidemia, unspecified; Z13.9 Encounter for screening, unspecified; J02.9 Acute pharyngitis, unspecified

== ENCOUNTER 2019-03-24 10:00 | Outpatient (RCR) | payer MEDICAID ==
[~2019-03-24 10:00] MED LIST changes: -DULO1CAP; +DULO1CAP4
== END 2019-03-25 ==
LOC: M OUTALCOH 10:00
PROVIDERS: ATTEND Psychiatry & Neurology Psychiatry
DX: F15.20 Other stimulant dependence, uncomplicated (principal); F17.200 Nicotine dependence, unspecified, uncomplicated

== ENCOUNTER 2019-04-07 10:00 | Outpatient (RCR) | payer MEDICAID ==
[2019-04-13] MEDS ORDERED: LAMI25CH PO (22:07)
[2019-04-14] MEDS ORDERED: PYRI1TAB5 PO (01:06)
[2019-04-14] MEDS ORDERED: CIPR-249 PO (01:06)
== END 2019-04-25 ==
LOC: M OUTALCOH 10:00
PROVIDERS: ATTEND Psychiatry & Neurology Psychiatry
DX: F15.20 Other stimulant dependence, uncomplicated (principal); F17.200 Nicotine dependence, unspecified, uncomplicated

== ENCOUNTER 2019-04-13 22:01 | Emergency (ER) | payer MEDICAID, OTHER ==
[~2019-04-13] VITALS: Ht 162.6 cm; Wt 65.9 kg
[2019-04-13] MEDS ORDERED: LAMI25CH PO (22:07)
[2019-04-13] MEDS ORDERED: NS 1,000 ML IV ONE (22:30)
[2019-04-13] MEDS ORDERED: ONDANSETRON 4MG/2ML VIAL (J2405) IV ONE (22:45)
[2019-04-13] MEDS ORDERED: KETOROLAC 30 MG/ML VIAL (J1885) IV ONE (22:45)
[2019-04-13 22:55] LABS: BASO % 0.3 % (0.0-1.0); HEMATOCRIT 39.2 % (36.0-47.0); HEMOGLOBIN 13.3 g/dl (12.0-15.5); LYMPH # 2.1 10^3/uL (1.5-4.5); LYMPH % 20.8 % (24.0-44.0); MEAN CORPUSCULAR HEMOGLOBIN 32.4 pg (27.0-33.0); MEAN CORPUSCULAR HGB CONC 33.9 g/dl (32.0-36.5); MEAN CORPUSCULAR VOLUME 95.6 fl (80.0-96.0); MONO # 0.8 10^3/uL (0.0-0.8); NEUTROPHILS % 70.5 % (36.0-66.0); PLATELET COUNT, AUTOMATED 198 10^3/uL (150-450)
[2019-04-13 23:14] LABS: ALBUMIN 3.6 GM/DL (3.2-5.2); ALT/SGPT 63 U/L (12-78); BILIRUBIN,DIRECT 0.1 MG/DL (0.0-0.2); BILIRUBIN,TOTAL 0.2 MG/DL (0.2-1.0); BLOOD UREA NITROGEN 18 MG/DL (7-18); CARBON DIOXIDE LEVEL 27 MEQ/L (21-32); CHLORIDE LEVEL 103 MEQ/L (98-107); CREATININE FOR GFR 0.91 MG/DL (0.55-1.30); GLOMERULAR FILTRATION RATE > 60.0 (>58); GLUCOSE, FASTING 118 MG/DL (70-100); LIPASE 115 U/L (73-393); POTASSIUM SERUM 4.3 MEQ/L (3.5-5.1); SODIUM LEVEL 139 MEQ/L (136-145); TOTAL PROTEIN 7.2 GM/DL (6.4-8.2)
[2019-04-13] MEDS ORDERED: cefTRIAXone SOD 1 GM in D5W MINI-BAG PLUS 50 ML IV ONE (23:45)
[2019-04-13] MEDS ORDERED: ISOVUE-370 76% 100ML VIAL (Q9967) As Ordered ONE (23:51)
[2019-04-14] MEDS ORDERED: CIPR-249 PO (01:06)
[2019-04-14] MEDS ORDERED: PYRI1TAB5 PO (01:06)
[2019-04-14 01:14] VITALS: BP 106/82
--- NOTE | 2019-04-14 11:42 | REP ---
REASON: Right flank pain. There are no priors for comparison. CONTRAST: 100 mL Isovue 370. The lung bases are clear. The liver, gallbladder, spleen, pancreas, adrenal glands, and kidneys are within normal limits. There is an incidental subcentimeter sized focal area of low density in the posterior cortex of the inferior pole of the left kidney likely a tiny cortical cyst. There are no enhancing renal masses. There is no hydronephrosis. There is no free fluid or free air. The abdominal aorta and paraaortic regions are within normal limits. There is no intra-abdominal mass or adenopathy. The bowel loops and their mesenteries are within normal limits. CT PELVIS: There are no urinary or bladder calcifications. There is no evidence of a pelvic mass or adenopathy. There is no free fluid or free air. Bone window technique throughout the exam shows the osseous structures to be within normal limits. IMPRESSION: CT findings are within normal limits. Electronically Signed by Efrain Barron DO 04/14/2019 03:30 P
== END 2019-04-14 01:17 | disposition home or self-care (01) ==
LOC: M ED 22:01
DX: N39.0 Urinary tract infection, site not specified (principal); F33.9 Major depressive disorder, recurrent, unspecified; F41.9 Anxiety disorder, unspecified; Z88.5 Allergy status to narcotic agent; Z88.8 Allergy status to other drugs, medicaments and biological substances; F17.210 Nicotine dependence, cigarettes, uncomplicated
CPT/HCPCS: 74177; 80047; 80048; 80076; 81001; 83605; 83690; 84702; 85025; 87040; 87088; 87186; 96361; 96374; 96375; 99284; J0696; J1885; J2405; Q9967

== ENCOUNTER → 2019-07-01 | Outpatient (CLI) | payer MEDICAID ==
[~2019-07-01] MED LIST changes: +CIPR-249 PO; +LAMI25CH PO; +PYRI1TAB5 PO
== END ==
LOC: M OUTALCOH 09:33
PROVIDERS: ATTEND Psychiatry & Neurology Psychiatry
DX: Z13.9 Encounter for screening, unspecified (principal); F15.20 Other stimulant dependence, uncomplicated

== ENCOUNTER → 2019-07-16 | Outpatient (REF) | payer MEDICAID ==
[2019-07-16 13:19] LABS: HEMATOCRIT 40.5 % (36.0-47.0); HEMOGLOBIN 13.8 g/dl (12.0-15.5); MEAN CORPUSCULAR HEMOGLOBIN 32.3 pg (27.0-33.0); MEAN CORPUSCULAR HGB CONC 34.1 g/dl (32.0-36.5); MEAN CORPUSCULAR VOLUME 94.8 fl (80.0-96.0); PLATELET COUNT, AUTOMATED 203 10^3/uL (150-450); RED BLOOD COUNT 4.27 10^6/uL (4.00-5.40); WHITE BLOOD COUNT 5.7 10^3/uL (4.0-10.0)
[2019-07-16 13:31] LABS: ALBUMIN 3.7 GM/DL (3.2-5.2); ALT/SGPT 71 U/L (12-78); BILIRUBIN,TOTAL 0.4 MG/DL (0.2-1.0); BLOOD UREA NITROGEN 13 MG/DL (7-18); CARBON DIOXIDE LEVEL 27 MEQ/L (21-32); CHLORIDE LEVEL 104 MEQ/L (98-107); CHOLESTEROL LEVEL 231 MG/DL (<200); CHOLESTEROL RISK RATIO 3.609 (<5); CREATININE FOR GFR 0.77 MG/DL (0.55-1.30); FREE T4 1.09 NG/DL (0.76-1.46); GLOMERULAR FILTRATION RATE > 60.0 (>58); GLUCOSE, FASTING 96 MG/DL (70-100); HDL CHOLESTEROL 64 MG/DL (>40); LDL CHOLESTEROL 144 MG/DL (<100); NON-HDL-C 167 MG/DL; POTASSIUM SERUM 4.3 MEQ/L (3.5-5.1); SODIUM LEVEL 138 MEQ/L (136-145); THYROID STIMULATING HORMONE 0.642 uIU/ML (0.358-3.740); TOTAL 25(OH) VITAMIN D 19.6 NG/ML (30.0-100.0); TOTAL PROTEIN 7.6 GM/DL (6.4-8.2); TRIGLYCERIDES LEVEL 113 MG/DL (<150)
[2019-07-16 13:49] LABS: ATYPICAL LYMPH 9 % (0-5); BASOPHILS 1 % (0-1); LYMPHOCYTES 22 % (16-44); MONOCYTES 9 % (0-5); NEUTROPHILS 58 % (28-66)
[2019-07-16 13:51] LABS: PLATELET ESTIMATE NORMAL (NORMAL)
[2019-07-16 14:03] LABS: HEMOGLOBIN A1c 5.9 %
== END ==
LOC: M LAB REF 12:09
PROVIDERS: ATTEND Nurse Practitioner Family
DX: Z13.9 Encounter for screening, unspecified (principal); I10 Essential (primary) hypertension; E78.5 Hyperlipidemia, unspecified; E11.9 Type 2 diabetes mellitus without complications

== ENCOUNTER 2019-07-21 08:34 | Outpatient (RCR) | payer MEDICAID | END 2019-07-25 | LOC: M OUTALCOH 08:34 | PROVIDERS: ATTEND Psychiatry & Neurology Psychiatry | DX: F15.20 Other stimulant dependence, uncomplicated (principal); F17.200 Nicotine dependence, unspecified, uncomplicated ==

== ENCOUNTER → 2020-01-22 | Outpatient (REF) | payer MEDICAID ==
[~2020-01-22] MED LIST changes: +CYCL-707 PO; -CYCL10TA PO
[2020-01-22 14:23] LABS: BASO # 0.1 10^3/uL (0.0-0.2); BASO % 0.7 % (0.0-1.0); EOS # 0.1 10^3/uL (0.0-0.5); EOS % 1.7 % (0.0-3.0); HEMATOCRIT 39.7 % (36.0-47.0); HEMOGLOBIN 13.3 g/dl (12.0-15.5); LYMPH # 3.2 10^3/uL (1.5-5.0); LYMPH % 44.4 % (24.0-44.0); MEAN CORPUSCULAR HEMOGLOBIN 32.8 pg (27.0-33.0); MEAN CORPUSCULAR HGB CONC 33.5 g/dl (32.0-36.5); MEAN CORPUSCULAR VOLUME 97.8 fl (80.0-96.0); MONO # 0.5 10^3/uL (0.0-0.8); MONO % 6.4 % (0.0-5.0); NEUTROPHILS # 3.3 10^3/uL (1.5-8.5); NEUTROPHILS % 46.2 % (36.0-66.0); PLATELET COUNT, AUTOMATED 230 10^3/uL (150-450); RED BLOOD COUNT 4.06 10^6/uL (4.00-5.40); WHITE BLOOD COUNT 7.2 10^3/uL (4.0-10.0)
[2020-01-22 18:26] LABS: ALBUMIN 3.7 GM/DL (3.2-5.2); ALT/SGPT 31 U/L (12-78); BILIRUBIN,TOTAL 0.2 MG/DL (0.2-1.0); BLOOD UREA NITROGEN 12 MG/DL (7-18); CALCIUM LEVEL 8.6 MG/DL (8.5-10.1); CARBON DIOXIDE LEVEL 27 MEQ/L (21-32); CHLORIDE LEVEL 104 MEQ/L (98-107); CHOLESTEROL LEVEL 204 MG/DL (<200); CHOLESTEROL RISK RATIO 3.777 (<5); CREATININE FOR GFR 0.66 MG/DL (0.55-1.30); GLOMERULAR FILTRATION RATE > 60.0 (>58); GLUCOSE, FASTING 89 MG/DL (70-100); HDL CHOLESTEROL 54 MG/DL (>40); IRON (FE) 108 UG/DL (50-170); LDL CHOLESTEROL 109 MG/DL (<100); NON-HDL-C 150 MG/DL; POTASSIUM SERUM 4.3 MEQ/L (3.5-5.1); SODIUM LEVEL 139 MEQ/L (136-145); THYROID STIMULATING HORMONE 0.592 uIU/ML (0.358-3.740); TOTAL PROTEIN 7.6 GM/DL (6.4-8.2); TRIGLYCERIDES LEVEL 204 MG/DL (<150)
[2020-01-22 18:28] LABS: TOTAL 25(OH) VITAMIN D 16.4 NG/ML (30.0-100.0); VITAMIN B12 LEVEL 747 PG/ML
[2020-01-22 18:29] LABS: FOLATE 14.6 NG/ML
== END ==
LOC: M LAB REF 12:17
PROVIDERS: ATTEND Nurse Practitioner Family
DX: F17.200 Nicotine dependence, unspecified, uncomplicated (principal); E11.9 Type 2 diabetes mellitus without complications; I10 Essential (primary) hypertension; E78.5 Hyperlipidemia, unspecified; F41.8 Other specified anxiety disorders; Z13.9 Encounter for screening, unspecified; R33.9 Retention of urine, unspecified; G47.00 Insomnia, unspecified

== ENCOUNTER 2020-03-09 14:55 | Emergency (ER) | payer MEDICAID ==
[~2020-03-09] VITALS: Ht 162.6 cm; Wt 71.0 kg
[2020-03-09] MEDS ORDERED: LORA-674 (15:02)
[2020-03-09] MEDS ORDERED: FLUO20CA22 (15:02)
[2020-03-09] MEDS ORDERED: CLON-412 (15:02)
[2020-03-09] MEDS ORDERED: TOPI50TA9 (15:02)
[2020-03-09] MEDS ORDERED: LIDOCAINE W/EPINEPHRINE 1% 20ML VIAL SC ONE (17:00)
[2020-03-09] MEDS ORDERED: BACT800T5 PO (17:22)
[2020-03-09 17:25] VITALS: BP 149/88
[2020-03-10] MEDS ORDERED: ACET1TAB55 PO (15:24)
== END 2020-03-09 17:36 | disposition home or self-care (01) ==
LOC: M ED 14:55
DX: L02.411 Cutaneous abscess of right axilla (principal); J45.909 Unspecified asthma, uncomplicated; F17.200 Nicotine dependence, unspecified, uncomplicated; F32.9 Major depressive disorder, single episode, unspecified; F41.9 Anxiety disorder, unspecified; Z79.891 Long term (current) use of opiate analgesic; Z79.899 Other long term (current) drug therapy; Z88.5 Allergy status to narcotic agent; Z88.8 Allergy status to other drugs, medicaments and biological substances

== ENCOUNTER 2020-03-10 14:45 | Emergency (ER) | payer MEDICAID ==
[~2020-03-10] VITALS: Ht 162.6 cm; Wt 71.3 kg
[~2020-03-10 14:45] MED LIST changes: +BACT800T5 PO; +CLON-412; +FLUO20CA22; +LORA-674; +TOPI50TA9
[2020-03-10] MEDS ORDERED: ACET1TAB55 PO (15:24)
[2020-03-10 16:15] LABS: HEMATOCRIT 37.8 % (36.0-47.0); HEMOGLOBIN 12.5 g/dl (12.0-15.5); MEAN CORPUSCULAR HEMOGLOBIN 31.9 pg (27.0-33.0); MEAN CORPUSCULAR HGB CONC 33.1 g/dl (32.0-36.5); MEAN CORPUSCULAR VOLUME 96.4 fl (80.0-96.0); PLATELET COUNT, AUTOMATED 161 10^3/uL (150-450); RED BLOOD COUNT 3.92 10^6/uL (4.00-5.40); WHITE BLOOD COUNT 7.8 10^3/uL (4.0-10.0)
[2020-03-10] MEDS ORDERED: ONDANSETRON 4MG/2ML VIAL IV ONE (16:30)
[2020-03-10] MEDS ORDERED: CLINDAMYCIN 900 MG in IV 1 EA IV ONE (16:30)
[2020-03-10] MEDS ORDERED: NS 1,000 ML IV ONE (16:30)
[2020-03-10 16:37] LABS: BASO % 0.3 % (0.0-1.0); EOS # 0.1 10^3/uL (0.0-0.5); EOS % 0.6 % (0.0-3.0); LYMPH # 1.2 10^3/uL (1.5-5.0); LYMPH % 15.4 % (24.0-44.0); MONO # 0.3 10^3/uL (0.0-0.8); MONO % 4.2 % (0.0-5.0); NEUTROPHILS # 6.2 10^3/uL (1.5-8.5); NEUTROPHILS % 79.2 % (36.0-66.0)
[2020-03-10 17:34] LABS: BLOOD UREA NITROGEN 10 MG/DL (7-18); C REACTIVE PROTEIN QUANTITATIV 5.67 MG/DL (0.00-0.30); CALCIUM LEVEL 8.7 MG/DL (8.5-10.1); CARBON DIOXIDE LEVEL 21 MEQ/L (21-32); CHLORIDE LEVEL 107 MEQ/L (98-107); CREATININE FOR GFR 0.78 MG/DL (0.55-1.30); GLOMERULAR FILTRATION RATE > 60.0 (>58); GLUCOSE, FASTING 88 MG/DL (70-100); SODIUM LEVEL 135 MEQ/L (136-145)
[2020-03-10] MEDS ORDERED: CLINDAMYCIN 150MG CAPSULE PO ONE (18:00)
[2020-03-10] MEDS ORDERED: KETOROLAC 30 MG/ML 1ML VIAL IV ONE (18:00)
[2020-03-10 18:05] VITALS: BP 103/56
[2020-03-10 18:33] LABS: PLATELET ESTIMATE NORMAL (NORMAL)
== END 2020-03-10 18:47 | disposition home or self-care (01) ==
LOC: M ED 14:45
DX: L03.111 Cellulitis of right axilla (principal); Z79.2 Long term (current) use of antibiotics; Z79.899 Other long term (current) drug therapy; Z88.8 Allergy status to other drugs, medicaments and biological substances; Z88.5 Allergy status to narcotic agent
CPT/HCPCS: 36415; 80048; 85027; 86140; 87040; 96365; 96366; 96375; 99284; J1885; J2405

== ENCOUNTER 2020-05-21 21:00 | Emergency (ER) | payer MEDICAID ==
[~2020-05-21] VITALS: Ht 162.6 cm; Wt 69.0 kg
[~2020-05-21 21:00] MED LIST changes: +ACET1TAB55 PO
[2020-05-21] MEDS ORDERED: KETOROLAC 60MG 2ML VIAL IM ONE (23:45)
[2020-05-21] MEDS ORDERED: AUGMENTIN 875 MG TAB PO ONE (23:45)
[2020-05-21] MEDS ORDERED: CIPROFLOXACIN HC OTIC SUSPENSION AU ONE (23:45)
[2020-05-21] MEDS ORDERED: MELO15TA28 PO (23:50)
[2020-05-21] MEDS ORDERED: AUGM875T28 PO (23:50)
[2020-05-21] MEDS ORDERED: CIPRHCOTIC OTIC (23:50)
[2020-05-22 00:19] VITALS: BP 132/74
== END 2020-05-22 00:25 | disposition home or self-care (01) ==
LOC: M ED 21:00
DX: H60.313 Diffuse otitis externa, bilateral (principal); H66.003 Acute suppurative otitis media without spontaneous rupture of ear drum, bilateral; R09.81 Nasal congestion; F17.200 Nicotine dependence, unspecified, uncomplicated; Z79.899 Other long term (current) drug therapy; Z88.8 Allergy status to other drugs, medicaments and biological substances; Z88.5 Allergy status to narcotic agent
CPT/HCPCS: 96372; 99283; J1885

== ENCOUNTER 2020-05-24 17:48 | Emergency (ER) | payer MEDICAID ==
[~2020-05-24] VITALS: Ht 165.1 cm; Wt 68.6 kg
[~2020-05-24 17:48] MED LIST changes: +CIPRHCOTIC OTIC; +MELO15TA28 PO
[2020-05-24 17:49] VITALS: BP 161/82
[2020-05-24] MEDS ORDERED: AMOX875T2 (17:56)
== END 2020-05-24 19:11 | disposition home or self-care (01) ==
LOC: EEVIPCON 17:48 → M ED 17:48
DX: H66.001 Acute suppurative otitis media without spontaneous rupture of ear drum, right ear (principal); Z88.6 Allergy status to analgesic agent; Z88.8 Allergy status to other drugs, medicaments and biological substances

== ENCOUNTER 2020-06-02 11:51 | Emergency (ER) | payer MEDICAID ==
[~2020-06-02] VITALS: Ht 165.1 cm; Wt 66.5 kg
[~2020-06-02 11:51] MED LIST changes: +AMOX875T2
[2020-06-02 11:53] VITALS: BP 106/64
[2020-06-02] MEDS ORDERED: AFRI0.058 (12:55)
[2020-06-02] MEDS ORDERED: FLON1SPR NARES (12:55)
[2020-06-02] MEDS ORDERED: MUCI600T31 PO (12:55)
== END 2020-06-02 13:45 | disposition home or self-care (01) ==
LOC: M ED 11:51
DX: J06.9 Acute upper respiratory infection, unspecified (principal); B34.9 Viral infection, unspecified; I10 Essential (primary) hypertension; R73.03 Prediabetes; Z88.8 Allergy status to other drugs, medicaments and biological substances

== ENCOUNTER → 2020-09-07 | Outpatient (CLI) | payer SELFPAY ==
[~2020-09-07] MED LIST changes: +AFRI0.058; +FLON1SPR NARES; +MUCI600T31 PO
== END ==
LOC: M LABSMTC 12:07
PROVIDERS: ATTEND Pediatrics
DX: Z20.822 Contact with and (suspected) exposure to COVID-19 (principal)

== ENCOUNTER 2021-08-05 20:07 | Emergency (ER) | payer OTHER ==
[~2021-08-05] VITALS: Ht 162.6 cm; Wt 79.5 kg
[2021-08-05 20:09] VITALS: BP 148/76
--- OUTSIDE RECORDS SUMMARY | 2021-08-05 20:17 | CCD ---
Author Author [facility] Organization [facility] Address Unknown Phone Unavailable Care Team Providers Care Cotton Ball Bagger Name Role Phone Thomas, A Dunia INSTRUCTIONAL DESIGN SPECIALIST Unavailable Unavailable Thomas, A Dunia INSTRUCTIONAL DESIGN SPECIALIST Unavailable Unavailable Thomas, A Dunia INSTRUCTIONAL DESIGN SPECIALIST Unavailable Unavailable Thomas, A Dunia INSTRUCTIONAL DESIGN SPECIALIST Unavailable Unavailable Thomas, A Dunia INSTRUCTIONAL DESIGN SPECIALIST Unavailable Unavailable Thomas, A Dunia INSTRUCTIONAL DESIGN SPECIALIST Unavailable Unavailable Thomas, A Dunia INSTRUCTIONAL DESIGN SPECIALIST Unavailable Unavailable Thomas, A Dunia INSTRUCTIONAL DESIGN SPECIALIST Unavailable Unavailable Thomas, A Dunia INSTRUCTIONAL DESIGN SPECIALIST Unavailable Unavailable Thomas, A Dunia INSTRUCTIONAL DESIGN SPECIALIST Unavailable Unavailable Thomas, A Dunia INSTRUCTIONAL DESIGN SPECIALIST Unavailable Unavailable Thomas, A Dunia INSTRUCTIONAL DESIGN SPECIALIST Unavailable Unavailable Thomas, A Dunia INSTRUCTIONAL DESIGN SPECIALIST Unavailable Unavailable Thomas, A Dunia INSTRUCTIONAL DESIGN SPECIALIST Unavailable Unavailable Thomas, A Dunia INSTRUCTIONAL DESIGN SPECIALIST Unavailable Unavailable Thomas, A Dunia INSTRUCTIONAL DESIGN SPECIALIST Unavailable Unavailable Thomas, A Dunia INSTRUCTIONAL DESIGN SPECIALIST Unavailable Unavailable Thomas, A Dunia INSTRUCTIONAL DESIGN SPECIALIST Unavailable Unavailable Thomas, A Dunia INSTRUCTIONAL DESIGN SPECIALIST Unavailable Unavailable Thomas, A Dunia INSTRUCTIONAL DESIGN SPECIALIST Unavailable Unavailable Thomas, A Dunia INSTRUCTIONAL DESIGN SPECIALIST Unavailable Unavailable Thomas, A Dunia INSTRUCTIONAL DESIGN SPECIALIST Unavailable Unavailable Thomas, A Dunia INSTRUCTIONAL DESIGN SPECIALIST Unavailable Unavailable Thomas, A Dunia INSTRUCTIONAL DESIGN SPECIALIST Unavailable Unavailable Thomas, A Dunia INSTRUCTIONAL DESIGN SPECIALIST Unavailable Unavailable Thomas, A Dunia INSTRUCTIONAL DESIGN SPECIALIST Unavailable Unavailable Thomas, A Dunia INSTRUCTIONAL DESIGN SPECIALIST Unavailable Unavailable Thomas, A Dunia INSTRUCTIONAL DESIGN SPECIALIST Unavailable Unavailable Thomas, A Dunia INSTRUCTIONAL DESIGN SPECIALIST Unavailable Unavailable Thomas, A Dunia INSTRUCTIONAL DESIGN SPECIALIST Unavailable Unavailable Thomas, A Dunia INSTRUCTIONAL DESIGN SPECIALIST Unavailable Unavailable Thomas, A Dunia INSTRUCTIONAL DESIGN SPECIALIST Unavailable Unavailable Thomas, A Dunia INSTRUCTIONAL DESIGN SPECIALIST Unavailable Unavailable Thomas, A Dunia INSTRUCTIONAL DESIGN SPECIALIST Unavailable Unavailable Thomas, A Dunia INSTRUCTIONAL DESIGN SPECIALIST Unavailable Unavailable Thomas, A Dunia INSTRUCTIONAL DESIGN SPECIALIST Unavailable Unavailable Thomas, A Dunia INSTRUCTIONAL DESIGN SPECIALIST Unavailable Unavailable Thomas, A Dunia INSTRUCTIONAL DESIGN SPECIALIST Unavailable Unavailable Thomas, A Dunia INSTRUCTIONAL DESIGN SPECIALIST Unavailable Unavailable Thomas, A Dunia INSTRUCTIONAL DESIGN SPECIALIST Unavailable Unavailable Thomas, A Dunia INSTRUCTIONAL DESIGN SPECIALIST Unavailable Unavailable Thomas, A Dunia INSTRUCTIONAL DESIGN SPECIALIST Unavailable Unavailable Thomas, A Dunia INSTRUCTIONAL DESIGN SPECIALIST Unavailable Unavailable Thomas, A Dunia INSTRUCTIONAL DESIGN SPECIALIST Unavailable Unavailable Thomas, A Dunia INSTRUCTIONAL DESIGN SPECIALIST Unavailable Unavailable Thomas, A Dunia INSTRUCTIONAL DESIGN SPECIALIST Unavailable Unavailable Meally, A Dunia INSTRUCTIONAL DESIGN SPECIALIST Unavailable Unavailable Thomas, A Dunia INSTRUCTIONAL DESIGN SPECIALIST Unavailable Unavailable Thomas, A Dunia INSTRUCTIONAL DESIGN SPECIALIST Unavailable Unavailable Thomas, A Dunia INSTRUCTIONAL DESIGN SPECIALIST Unavailable Unavailable Thomas, A Dunia INSTRUCTIONAL DESIGN SPECIALIST Unavailable Unavailable Thomas, A Dunia INSTRUCTIONAL DESIGN SPECIALIST Unavailable Unavailable Thomas, A Dunia INSTRUCTIONAL DESIGN SPECIALIST Unavailable Unavailable Thomas, A Dunia INSTRUCTIONAL DESIGN SPECIALIST Unavailable Unavailable Meally, A Dunia INSTRUCTIONAL DESIGN SPECIALIST Unavailable Unavailable Thomas, A Dunia INSTRUCTIONAL DESIGN SPECIALIST Unavailable Unavailable Thomas, A Dunia INSTRUCTIONAL DESIGN SPECIALIST Unavailable Unavailable Thomas, A Dunia INSTRUCTIONAL DESIGN SPECIALIST Unavailable Unavailable Thomas, A Dunia INSTRUCTIONAL DESIGN SPECIALIST Unavailable Unavailable Thomas, A Dunia INSTRUCTIONAL DESIGN SPECIALIST Unavailable Unavailable Thomas, A Dunia INSTRUCTIONAL DESIGN SPECIALIST Unavailable Unavailable Thomas, A Dunia INSTRUCTIONAL DESIGN SPECIALIST Unavailable Unavailable Re-disclosure Warning The records that you are about to access may contain information from federally-assisted alcohol or drug abuse programs. If such information is present, then the following federally mandated warning applies: This information has been disclosed to you from records protected by federal confidentiality rules (42 CFR part 2). The federal rules prohibit you from making any further disclosure of this information unless further disclosure is expressly permitted by the written consent of the person to whom it pertains or as otherwise permitted by 42 CFR part 2. A general authorization for the release of medical or other information is NOT sufficient for this purpose. The Federal rules restrict any use of the information to criminally investigate or prosecute any alcohol or drug abuse patient.The records that you are about to access may contain highly sensitive health information, the redisclosure of which is protected by Article 27-F of the [facility] Public Health law. If you continue you may have access to information: Regarding HIV / AIDS; Provided by facilities licensed or operated by the [facility] Office of Mental Health; or Provided by the [facility] Office for People With Developmental Disabilities. If such information is present, then the following [facility] mandated warning applies: This information has been disclosed to you from confidential records which are protected by state law. State law prohibits you from making any further disclosure of this information without the specific written consent of the person to whom it pertains, or as otherwise permitted by law. Any unauthorized further disclosure in violation of state law may result in a fine or [place] [facility] sentence or both. A general authorization for the release of medical or other information is NOT sufficient authorization for further disc losure. Encounters Encounter Providers Location Date Indications Data Source(s ) [facility] [address] [place] [address], Ph. Attender: Dunia AGUILERA [facility] Medical 05/02/2021 12:00:00 AM EDT [facility] ([facility]) Outpatient Attender: Dunia AGUILERA 06/13/2020 08:3 4:02 PM EDT [facility] Medications Medication Brand Name Start Date Product Form Dose Route Admi nistrative Instructions Pharmacy Instructions Status Indications Reaction Description Data Source(s) 10 mg 04/17/2021 12:00:00 AM EDT tablet 30 TAKE ONE TABLET BY MOUTH ONCE DAILY TAKE ONE TABLET BY MOUTH ONCE DAILY SOLD: 04/17/2021 [facility] 24 HR venlafaxine 75 MG Extended Release Oral Capsule VENLAF AXINE HCL 11/01/2020 12:00:00 AM EST capsule,extended release 24hr 30 TA KE ONE CAPSULE BY MOUTH EVERY MORNING TAKE ONE CAPSULE BY MOUTH EVERY MORNING SOLD: 11/07/2020 [facility] 37.5 mg 10/18/2020 12:00:00 AM EST capsule,extended releas e 24hr 30 TAKE ONE CAPSULE BY MOUTH EVERY MORNING TAKE ONE CAPSULE BY MOUTH EVERY MORNING SOLD: 10/24/2020 [facility] 90 mcg/actuation 10/08/2020 12:00:00 AM EST HFA aerosol inha ler 18 INHALE TWO PUFFS BY MOUTH FOUR TIMES A DAY NEEDED INHALE TWO PUFFS BY MOUTH FOUR TIMES A DAY NEEDED SOLD: 10/09/2020 [facility] 15 mg 10/08/2020 12:00:00 AM EST tablet 30 TAKE ONE TABLET BY MOUTH EVERY DAY FOR PAIN TAKE ONE TABLET BY MOUTH EVERY DAY FOR PAIN SOLD: 11/07/2020 [facility] 15 mg 10/08/2020 12:00:00 AM EST tablet 30 TAKE ONE TABLET BY MOUTH EVERY DAY FOR PAIN TAKE ONE TABLET BY MOUTH EVERY DAY FOR PAIN SOLD: 10/09/2020 [facility] Clonidine Hydrochloride 0.1 MG Oral Tablet CLONIDINE HCL 10/08/2020 12:00:00 AM EST tablet 30 TAKE ONE TABLET BY MOUTH CARMELLA RY DAY TAKE ONE TABLET BY MOUTH EVERY DAY SOLD: 11/07/2020 [facility] Clonidine Hydrochloride 0.1 MG Oral Tablet CLONIDINE HCL 10/08/2020 12:00:00 AM EST tablet 30 TAKE ONE TABLET BY MOUTH CARMELLA RY DAY TAKE ONE TABLET BY MOUTH EVERY DAY SOLD: 10/09/2020 [facility] 90 mcg/actuation 10/08/2020 12:00:00 AM EST HFA aerosol inha ler 18 INHALE TWO PUFFS BY MOUTH FOUR TIMES A DAY NEEDED INHALE TWO PUFFS BY MOUTH FOUR TIMES A DAY NEEDED SOLD: 10/31/2020 [facility] 37.5 mg 09/09/2020 12:00:00 AM EST capsule,extended releas e 24hr 30 TAKE ONE CAPSULE BY MOUTH EVERY MORNING TAKE ONE CAPSULE BY MOUTH EVERY MORNING SOLD: 09/14/2020 [facility] 10 mg 07/14/2020 12:00:00 AM EST tablet 30 TAKE 1 TABLET BY MOUTH DAILY TAKE 1 TABLET BY MOUTH DAILY SOLD: 08/20/2020 [facility] 10 mg 07/14/2020 12:00:00 AM EST tablet 30 TAKE 1 TABLET BY MOUTH DAILY TAKE 1 TABLET BY MOUTH DAILY SOLD: 08/04/2020 [facility] 10 mg 06/14/2020 12:00:00 AM EDT capsule 30 TAKE 1 CAP BY MOUTH EVERY MORNING COMBINE WITH 20MG CAP FOR DAILY DOSE OF 30MG TAKE 1 CAP BY MOUTH EVERY MORNING COMBINE WITH 20MG CAP FOR DAILY DOSE OF 30MG SOLD: 06/19/2020 [facility] 20 mg 06/14/2020 12:00:00 AM EDT capsule 30 TAKE 1 CAP BY MOUTH DAILY COMBINE WITH 10MG CAP FOR DAILY DOSE OF 30MG TAKE 1 CAP BY MOUTH DAILY COMBINE WITH 10MG CAP FOR DAILY DOSE OF 30MG SOLD: 07/12/2020 [facility] 50 mg 06/14/2020 12:00:00 AM EDT tablet 30 TAKE 1/2 TABLET BY MOUTH AT BEDTIME FOR 1 WEEK THEN INCREASE TO 1 TABLET AT BEDTIME TAKE 1/2 TABLET BY MOUTH AT BEDTIME FOR 1 WEEK THEN INCREASE TO 1 TABLET AT BEDTIME SOLD: 06/19/2020 [facility] 10 mg 06/14/2020 12:00:00 AM EDT capsule 30 TAKE 1 CAP BY MOUTH EVERY MORNING COMBINE WITH 20MG CAP FOR DAILY DOSE OF 30MG TAKE 1 CAP BY MOUTH EVERY MORNING COMBINE WITH 20MG CAP FOR DAILY DOSE OF 30MG SOLD: 07/12/2020 [facility] 20 mg 06/14/2020 12:00:00 AM EDT capsule 30 TAKE 1 CAP BY MOUTH DAILY COMBINE WITH 10MG CAP FOR DAILY DOSE OF 30MG TAKE 1 CAP BY MOUTH DAILY COMBINE WITH 10MG CAP FOR DAILY DOSE OF 30MG SOLD: 06/19/2020 [facility] 90 mcg/actuation 05/27/2020 12:00:00 AM EDT HFA aerosol inha ler 18 INHALE TWO PUFFS BY MOUTH FOUR TIMES A DAY NEEDED INHALE TWO PUFFS BY MOUTH FOUR TIMES A DAY NEEDED SOLD: 08/20/2020 [facility] 15 mg 05/27/2020 12:00:00 AM EDT tablet 30 TAKE ONE TABLET BY MOUTH EVERY DAY FOR PAIN TAKE ONE TABLET BY MOUTH EVERY DAY FOR PAIN SOLD: 08/20/2020 [facility] 15 mg 05/27/2020 12:00:00 AM EDT tablet 30 TAKE ONE TABLET BY MOUTH EVERY DAY FOR PAIN TAKE ONE TABLET BY MOUTH EVERY DAY FOR PAIN SOLD: 07/12/2020 [facility] 90 mcg/actuation 05/27/2020 12:00:00 AM EDT HFA aerosol inha ler 18 INHALE TWO PUFFS BY MOUTH FOUR TIMES A DAY NEEDED INHALE TWO PUFFS BY MOUTH FOUR TIMES A DAY NEEDED SOLD: 09/15/2020 [facility] Clonidine Hydrochloride 0.1 MG Oral Tablet CLONIDINE HCL 05/26/2020 12:00:00 AM EDT tablet 30 TAKE ONE TABLET BY MOUTH CARMELLA DAY TAKE ONE TABLET BY MOUTH EVERY DAY SOLD: 08/20/2020 [facility] Clonidine Hydrochloride 0.1 MG Oral Tablet CLONIDINE HCL 05/26/2020 12:00:00 AM EDT tablet 30 TAKE ONE TABLET BY MOUTH CARMELLA RY DAY TAKE ONE TABLET BY MOUTH EVERY DAY SOLD: 07/12/2020 [facility] Amoxicillin 875 MG / Clavulanate 125 MG Oral Tablet amoxicillin 875 mg-potassium clavulanate 125 mg tablet TAKE ONE TABLET BY MOUTH TWICE A DAY amoxicillin 875 mg-potassium clavulanate 125 mg tablet TAKE ONE TABLET BY MOUTH TWICE A DAY completed amoxicillin 875 MG / c lavulanate 125 MG Oral Tablet [facility]) topiramate 50 MG Oral Tablet topiramate 50 mg tablet TAKE ONE TABLET BY MOUTH EVERY DAY topiramate 50 mg tablet TAKE ONE TABLET BY MOUTH EVERY DAY completed topiramate 50 MG Oral Tablet [facility]) lamotrigine 25 MG Oral Tablet lamotrigin e 25 mg tablet TAKE 2 TABLETS BY MOUTH DAILY AT BEDTIME lamotrigine 25 mg tablet TAKE 2 TABLETS BY MOUTH DAILY AT BEDTIME completed lamotrigine 25 MG Oral Tablet [facility]) fluoxetine 20 mg tablet TAKE ONE TABLET BY MOUTH EVERY DAY completed PMDD fluoxetine 20 MG Oral Table t [facility]) Fluoxetine 20 MG Oral Capsule fluoxetine 20 mg capsule TAKE 1 CAP BY MOUTH DAILY COMBINE WITH 10MG CAP FOR DAILY DOSE OF 30MG fluoxetine 20 mg capsule TAKE 1 CAP BY MOUTH DAILY COMBINE WITH 10MG CAP FOR DAILY DOSE OF 30MG completed fluoxetine 20 MG Oral Capsule AT [facility]) Fluoxetine 10 MG Oral Capsule fluoxetine 10 mg capsule TAKE 1 CAP BY MOUTH EVERY MORNING COMBINE WITH 20MG CAP FOR DAILY DOSE OF 30MG fluoxetine 10 mg capsule TAKE 1 CAP BY MOUTH EVERY MORNING COMBINE WITH 20MG CAP FOR DAILY DOSE OF 30MG completed fluoxetine 10 MG Oral Capsule [facility] ([facility]) paroxetine 20 mg tablet TAKE 1 TABLET BY MOUTH ONCE DAILY [id number] completed paroxetine hydrochloride 20 MG O ral Tablet [facility] ([facility]) 24 HR venlafaxine 37.5 MG Extended Relea se Oral Capsule venlafaxine ER 37.5 mg capsule,extended release 24 hr TAKE ONE CAPSULE BY MOUTH EVERY MORNING venlafaxine ER 37.5 mg capsule,extended release 24 hr TAKE ONE CAPSULE BY MOUTH EVERY MORNING completed 24 HR venlafaxine 37.5 MG Extended Release Oral Capsule [facility] ([facility]) topiramate 25 MG Oral Tablet topiramate 25 mg tablet TAKE ONE TABLET BY MOUTH EVERY DAY topiramate 25 mg tablet TAKE ONE TABLET BY MOUTH EVERY DAY completed topiramate 25 MG Oral Tablet [facility] ([facility]) Tamsulosin hydrochloride 0.4 MG Oral Cap michael tamsulosin 0.4 mg capsule TAKE 1 CAPSULE BY MOUTH DAILY tamsulosin 0.4 mg capsule TAKE 1 CAPSULE BY MOUTH MYLES [place] completed tamsulosin hyd rochloride 0.4 MG Oral Capsule [facility] ([facility]) 24 HR lamotrigine 50 MG Extended Release Oral Tablet lamotrigine ER 50 mg tablet,extended release 24 hr TAKE ONE TABLET BY MOUTH AT BEDTIME lamotrigine ER 50 mg tablet,extended release 24 hr TAKE ONE TABLET BY MOUTH AT BEDTIME completed 24 HR lamotrigine 50 MG E xtended Release Oral Tablet [place] ([facility]) paroxetine 10 mg tablet TAKE 1 TABLET BY MOUTH DAILY FOR 1 WEEK THEN DECREASE TO 1/2 TABLET DAILY FOR 1 WEEK THEN DISCONTINUE [id number] completed paroxetine hydrochloride 10 MG Oral Tablet [facility] ([facility]) Sulfamethoxazole 800 MG / Trimethoprim 1 60 MG Oral Tablet sulfamethoxazole 800 mg-trimethoprim 160 mg tablet TAKE ONE TABLET BY MOUTH EVERY 12 HOURS FOR 10 DAYS sulfamethoxazole 800 mg-trimethoprim 160 mg tablet TAKE ONE TABLET BY MOUTH EVERY 12 HOURS FOR 10 DAYS completed sulfamethoxazole 800 MG / trimethoprim 160 MG Oral Tablet [facility] ([facility]) meloxicam 7.5 MG Oral Tablet meloxicam 7 .5 mg tablet TAKE ONE TABLET BY MOUTH TWICE A DAY meloxicam 7.5 mg tablet TAKE ONE TABLET BY MOUTH TWICE A DAY completed meloxicam 7.5 MG Ora l Tablet [facility] ([facility]) 24 HR venlafaxine 75 MG Extended Release Oral Capsule venlafaxine ER 75 mg capsule,extended release 24 hr TAKE ONE CAPSULE BY MOUTH EVERY MORNING venlafaxine ER 75 mg capsule,extended release 24 hr TAKE ONE CAPSULE BY MOUTH EVERY MORNING completed 24 HR venlafaxine 75 MG Extended Release Oral Capsule [facility] ([facility]) Insurance Providers Payer name Policy type / Coverage type Policy ID Covered alliance party ID Covered alliance party's relationship to flores Policy Flores Plan Information Medicaid S [id number] Managed Care Terry P [id number] S [id number] TERRY [id number] SP [id number] [id number] SP [id number] Medicaid P [id number] Managed Care Terry P [id number] S [id number] Medicaid P [id number] S [id number] [place] [id number] S [id number] SELF PAY ONLY [id number] MEDICAID [id number] SP [id number] TERRY [id number] SP [id number] [facility] MCDO [id number] SP [id number] [facility] [id number] [place] [id number] SP [id number] SELF PAY ONLY MEDICAID [id number] SP [id number] [facility] [id number] SP [id number] TERRY [id number] SP [id number] Managed Care Terry P [id number] S [id number] Problems, Conditions, and Diagnoses Code Display Name Description Problem Type Effective Dates Data Source(s) [id number] Screening mammography of bilateral breas ts Screening Mammography of Bilateral Breasts Problem 05/03/2021 12:00:00 AM ALENA RODRÍGUEZ ([facility]) [id number] Tobacco dependence caused by cigarettes Tobacco Dependence Caused by Cigarettes Problem 05/03/2021 12:00:00 AM ALENA RODRÍGUEZ ([facility]) [id number] Screening for malignant neoplasm of colo n Screening for Malignant Neoplasm of Colon Problem 05/03/2021 12:00:00 AM EDT [facility] ([facility]) [id number] Adult health examination Adult Health Examination Prob jose 05/03/2021 12:00:00 AM EDT [facility]) [id number] Asthma Asthma Problem [facility]/03[id number] Chronic pain Chronic Pain Problem 05/03/2021 12:00:00 A M EDT [facility] ([facility]) [id number] Mixed anxiety and depressive disorder Mi xed Anxiety and Depressive Disorder Problem 05/03/2021 12:00:00 AM EDT [place] ([facility]) Surgeries/Procedures Procedure Description Date Indications Data Source(s) MAMMO, screening, digital, bilateral 05/02/2021 12:00: 00 AM EDT [facility]) Results ID Date Data Source [id number] 07/05/2021 10:36:00 AM EST [facility] Name Value Range Interpretation Code Description Data Radhika rce(s) Supporting Document(s) SARS coronavirus 2 RdRp gene [Presence] in Respiratory specimen by ANA MARÍA with probe detection Not detected [facility] This lab was ordered by [facility] and reported by [facility]. ID Date Data Source [id number] 09/07/2020 12:00:00 AM EST [facility] Name Value Range Interpretation Code Description Data Radhika rce(s) Supporting Document(s) SARS-CoV-2 (COVID-19) RNA [Presence] in Respiratory specimen by ANA MARÍA with probe detection Not Detected [facility] This lab was ordered by [facility] and reported by [employer]. Procedure Social History No Information Vital Signs ID Date Data Source UNK Name Value Range Interpretation Code Description Data Source(s) Diastolic blood pressure 68 mm[Hg] 68 mm[Hg] [facility] ([facility]) Body height 65 [in_i] 65 [in_i] [place] ([facility]) Body mass index (BMI) [Ratio] 26.6 kg/m2 26.6 k g/m2 [facility] ([facility]) Systolic blood pressure 102 mm[Hg] 102 mm[Hg] Hien THENA ([facility]) Body weight 2562 [oz_av] 2562 [oz_av] [facility] ([facility]) Patient Treatment Plan of Care Planned Activity Planned Date Details Description Data Source (s) Fluoxetine 10 MG Oral Capsule [facility] ([facility]) Amoxicillin 875 MG / Clavulanate 125 MG Oral Tablet [facility] ([facility]) 24 HR venlafaxine 75 MG Extended Release Oral Capsule [facility] ([facility]) 24 HR venlafaxine 37.5 MG Extended Release Oral Capsule [facility] ([facility]) topiramate 50 MG Oral Tablet [facility] ([facility]) topiramate 25 MG Oral Tablet [facility] ([facility]) Tamsulosin hydrochloride 0.4 MG Oral Capsule [facility] ([facility]) Sulfamethoxazole 800 MG / Trimethoprim 160 MG Oral Tablet [facility] ([facility]) paroxetine 20 mg tablet TAKE 1 TABLET BY MOUTH ONCE DAILY [facility] ([facility]) paroxetine 10 mg tablet TAKE 1 TABLET BY MOUTH DAILY FOR 1 WEEK THEN DECREASE TO 1/2 TABLET DAILY FOR 1 WEEK THEN DISCONTINUE [facility] ([facility]) meloxicam 7.5 MG Oral Tablet [facility] ([facility]) 24 HR lamotrigine 50 MG Extended Release Oral Tablet [facility] ([facility]) lamotrigine 25 MG Oral Tablet [facility] ([facility]) fluoxetine 20 mg tablet TAKE ONE TABLET BY MOUTH EVERY DAY [facility] ([facility]) Fluoxetine 20 MG Oral Capsule [facility] ([facility])
[2021-08-05] MEDS ORDERED: TRAZ-257 PO (20:19)
[2021-08-05] MEDS ORDERED: EFFE150C2 PO (20:19)
--- OUTSIDE RECORDS SUMMARY | 2021-08-06 03:58 | CCD ---
Author Author [facility] Organization [facility] Address Unknown Phone Unavailable Care Team Providers Care Spanish Lecturer Name Role Phone Thomas, A Dunia NIB INSPECTOR Unavailable Unavailable Thomas, A Dunia NIB INSPECTOR Unavailable Unavailable Thomas, A Dunia NIB INSPECTOR Unavailable Unavailable Thomas, A Dunia NIB INSPECTOR Unavailable Unavailable Thomas, A Dunia NIB INSPECTOR Unavailable Unavailable Thomas, A Dunia NIB INSPECTOR Unavailable Unavailable Thomas, A Dunia NIB INSPECTOR Unavailable Unavailable Thomas, A Dunia NIB INSPECTOR Unavailable Unavailable Thomas, A Dunia NIB INSPECTOR Unavailable Unavailable Thomas, A Dunia NIB INSPECTOR Unavailable Unavailable Thomas, A Dunia NIB INSPECTOR Unavailable Unavailable Thomas, A Dunia NIB INSPECTOR Unavailable Unavailable Thomas, A Dunia NIB INSPECTOR Unavailable Unavailable Thomas, A Dunia NIB INSPECTOR Unavailable Unavailable Thomas, A Dunia NIB INSPECTOR Unavailable Unavailable Thomas, A Dunia NIB INSPECTOR Unavailable Unavailable Thomas, A Dunia NIB INSPECTOR Unavailable Unavailable Thomas, A Dunia NIB INSPECTOR Unavailable Unavailable Thomas, A Dunia NIB INSPECTOR Unavailable Unavailable Thomas, A Dunia NIB INSPECTOR Unavailable Unavailable Thomas, A Dunia NIB INSPECTOR Unavailable Unavailable Thomas, A Dunia NIB INSPECTOR Unavailable Unavailable Thomas, A Dunia NIB INSPECTOR Unavailable Unavailable Thomas, A Dunia NIB INSPECTOR Unavailable Unavailable Thomas, A Dunia NIB INSPECTOR Unavailable Unavailable Thomas, A Dunia NIB INSPECTOR Unavailable Unavailable Thomas, A Dunia NIB INSPECTOR Unavailable Unavailable Thomas, A Dunia NIB INSPECTOR Unavailable Unavailable Thomas, A Dunia NIB INSPECTOR Unavailable Unavailable Thomas, A Dunia NIB INSPECTOR Unavailable Unavailable Thomas, A Dunia NIB INSPECTOR Unavailable Unavailable Thomas, A Dunia NIB INSPECTOR Unavailable Unavailable Thomas, A Dunia NIB INSPECTOR Unavailable Unavailable Thomas, A Dunia NIB INSPECTOR Unavailable Unavailable Thomas, A Dunia NIB INSPECTOR Unavailable Unavailable Thomas, A Dunia NIB INSPECTOR Unavailable Unavailable Thomas, A Dunia NIB INSPECTOR Unavailable Unavailable Thomas, A Dunia NIB INSPECTOR Unavailable Unavailable Thomas, A Dunia NIB INSPECTOR Unavailable Unavailable Thomas, A Dunia NIB INSPECTOR Unavailable Unavailable Thomas, A Dunia NIB INSPECTOR Unavailable Unavailable Thomas, A Dunia NIB INSPECTOR Unavailable Unavailable Thomas, A Dunia NIB INSPECTOR Unavailable Unavailable Thomas, A Dunia NIB INSPECTOR Unavailable Unavailable Thomas, A Dunia NIB INSPECTOR Unavailable Unavailable Thomas, A Dunia NIB INSPECTOR Unavailable Unavailable [place], A Dunia NIB INSPECTOR Unavailable Unavailable Thomas, A Dunia NIB INSPECTOR Unavailable Unavailable Thomas, A Dunia NIB INSPECTOR Unavailable Unavailable Thomas, A Dunia NIB INSPECTOR Unavailable Unavailable Thomas, A Dunia NIB INSPECTOR Unavailable Unavailable Thomas, A Dunia NIB INSPECTOR Unavailable Unavailable Thomas, A Dunia NIB INSPECTOR Unavailable Unavailable Thomas, A Dunia NIB INSPECTOR Unavailable Unavailable [place], A Dunia NIB INSPECTOR Unavailable Unavailable Thomas, A Dunia NIB INSPECTOR Unavailable Unavailable Thomas, A Dunia NIB INSPECTOR Unavailable Unavailable Thomas, A Dunia NIB INSPECTOR Unavailable Unavailable Thomas, A Dunia NIB INSPECTOR Unavailable Unavailable Thomas, A Dunia NIB INSPECTOR Unavailable Unavailable Thomas, A Dunia NIB INSPECTOR Unavailable Unavailable Thomas, A Dunia NIB INSPECTOR Unavailable Unavailable Re-disclosure Warning The records that [...] is protected by Article 27-F of the [facility] Public Health law. If you continue you may have access to information: Regarding HIV / AIDS; Provided by facilities licensed or operated by the [facility] Office of Mental Health; or Provided by the [facility] Office for People With Developmental Disabilities. If such information is present, then the following [facility] mandated warning applies: This information has [...] law may result in a fine or usp sentence or both. A general authorization for the release of medical or other information is NOT sufficient authorization for further disc losure. Encounters Encounter Providers Location Date Indications Data Source(s ) [facility] [address] [place] [address], Ph. Attender: Dunia AGUILERA [facility] Medical 05/02/2021 12:00:00 AM EDT MARCOS ([facility]) Outpatient Attender: Dunia AGUILERA 06/13/2020 08:3 4:02 PM EDT [facility] Medications Medication Brand Name Start Date [...] / c lavulanate 125 MG Oral Tablet [facility]) topiramate 50 MG Oral Tablet topiramate 50 mg tablet TAKE ONE TABLET BY MOUTH EVERY DAY topiramate 50 mg tablet TAKE ONE TABLET BY MOUTH EVERY DAY completed topiramate 50 MG Oral Tablet [facility]) lamotrigine 25 MG Oral Tablet lamotrigin e 25 mg tablet TAKE 2 TABLETS BY MOUTH DAILY AT BEDTIME lamotrigine 25 mg tablet TAKE 2 TABLETS BY MOUTH DAILY AT BEDTIME completed lamotrigine 25 MG Oral Tablet [facility]) fluoxetine 20 mg tablet TAKE ONE TABLET BY MOUTH EVERY DAY completed PMDD fluoxetine 20 MG Oral Table t [facility]) Fluoxetine 20 MG Oral Capsule fluoxetine 20 mg capsule TAKE 1 CAP BY MOUTH DAILY COMBINE WITH 10MG CAP FOR DAILY DOSE OF 30MG fluoxetine 20 mg capsule TAKE 1 CAP BY MOUTH DAILY COMBINE WITH 10MG CAP FOR DAILY DOSE OF 30MG completed fluoxetine 20 MG Oral Capsule AT [facility]) Fluoxetine 10 MG Oral Capsule fluoxetine 10 mg capsule TAKE 1 CAP BY MOUTH EVERY MORNING COMBINE WITH 20MG CAP FOR DAILY DOSE OF 30MG fluoxetine 10 mg capsule TAKE 1 CAP BY MOUTH EVERY MORNING COMBINE WITH 20MG CAP FOR DAILY DOSE OF 30MG completed fluoxetine 10 MG Oral Capsule MACROS ([facility]) paroxetine 20 mg tablet TAKE 1 TABLET BY MOUTH ONCE DAILY [id number] completed paroxetine hydrochloride 20 MG O ral Tablet MARCOS ([facility]) 24 HR venlafaxine 37.5 MG Extended Relea se Oral Capsule venlafaxine ER 37.5 mg capsule,extended release 24 hr TAKE ONE CAPSULE BY MOUTH EVERY MORNING venlafaxine ER 37.5 mg capsule,extended release 24 hr TAKE ONE CAPSULE BY MOUTH EVERY MORNING completed 24 HR venlafaxine 37.5 MG Extended Release Oral Capsule MARCOS ([facility]) topiramate 25 MG Oral Tablet topiramate 25 mg tablet TAKE ONE TABLET BY MOUTH EVERY DAY topiramate 25 mg tablet TAKE ONE TABLET BY MOUTH EVERY DAY completed topiramate 25 MG Oral Tablet MARCOS ([facility]) Tamsulosin hydrochloride 0.4 MG Oral Cap michael tamsulosin 0.4 mg capsule TAKE 1 CAPSULE BY MOUTH DAILY tamsulosin 0.4 mg capsule TAKE 1 CAPSULE BY MOUTH MYLES Parrish completed tamsulosin hyd rochloride 0.4 MG Oral Capsule MARCOS ([facility]) 24 HR lamotrigine 50 MG Extended Release Oral Tablet lamotrigine ER 50 mg tablet,extended release 24 hr TAKE ONE TABLET BY MOUTH AT BEDTIME lamotrigine ER 50 mg tablet,extended release 24 hr TAKE ONE TABLET BY MOUTH AT BEDTIME completed 24 HR lamotrigine 50 MG E xtended Release Oral Tablet BERKELEY ([facility]) paroxetine 10 mg tablet TAKE 1 TABLET BY MOUTH DAILY FOR 1 WEEK THEN DECREASE TO 1/2 TABLET DAILY FOR 1 WEEK THEN DISCONTINUE [id number] completed paroxetine hydrochloride 10 MG Oral Tablet MARCOS ([facility]) Sulfamethoxazole 800 MG / Trimethoprim 1 60 MG Oral Tablet sulfamethoxazole 800 mg-trimethoprim 160 mg tablet TAKE ONE TABLET BY MOUTH EVERY 12 HOURS FOR 10 DAYS sulfamethoxazole 800 mg-trimethoprim 160 mg tablet TAKE ONE TABLET BY MOUTH EVERY 12 HOURS FOR 10 DAYS completed sulfamethoxazole 800 MG / trimethoprim 160 MG Oral Tablet MARCOS ([facility]) meloxicam 7.5 MG Oral Tablet meloxicam 7 .5 mg tablet TAKE ONE TABLET BY MOUTH TWICE A DAY meloxicam 7.5 mg tablet TAKE ONE TABLET BY MOUTH TWICE A DAY completed meloxicam 7.5 MG Ora l Tablet MARCOS ([facility]) 24 HR venlafaxine 75 MG Extended Release Oral Capsule venlafaxine ER 75 mg capsule,extended release 24 hr TAKE ONE CAPSULE BY MOUTH EVERY MORNING venlafaxine ER 75 mg capsule,extended release 24 hr TAKE ONE CAPSULE BY MOUTH EVERY MORNING completed 24 HR venlafaxine 75 MG Extended Release Oral Capsule MARCOS ([facility]) Insurance Providers Payer name Policy type / Coverage type Policy ID Covered democrat ID Covered democrat's relationship to flores Policy Flores Plan Information Medicaid S [id number] S [id number] Managed Care Terry P [id number] S [id number] TERRY [id number] SP [id number] TERRY [id number] SP [id number] Medicaid P [id number] S [id number] Managed Care Terry P [id number] S [id number] Medicaid P [id number] S [id number] [place] [id number] S [id number] SELF PAY ONLY [id number] MEDICAID [id number] SP [id number] TERRY [id number] SP [id number] [facility] MCDO [id number] SP [id number] [facility] [id number] [id number] [place] [id number] SP [id number] SELF PAY ONLY MEDICAID [id number] SP [id number] [facility] [id number] SP [id number] TERRY [id number] SP [id number] Managed Care Terry P [id number] S [id number] Problems, Conditions, and Diagnoses Code Display Name Description Problem Type Effective Dates Data Source(s) [id number] Screening mammography of bilateral breas ts Screening Mammography of Bilateral Breasts Problem 05/03/2021 12:00:00 AM ALENA RODRÍGUEZ ([facility]) [id number] Tobacco dependence caused by cigarettes Tobacco Dependence Caused by Cigarettes Problem 05/03/2021 12:00:00 AM ALENA RODRÍGUEZ ([facility]) [id number] Screening for malignant neoplasm of colo n Screening for Malignant Neoplasm of Colon Problem 05/03/2021 12:00:00 AM EDT MARCOS ([facility]) [id number] Adult health examination Adult Health Examination Prob jose 05/03/2021 12:00:00 AM EDT [facility]) [id number] Asthma Asthma Problem [id number] Chronic pain Chronic Pain Problem 05/03/2021 12:00:00 A M EDT MARCOS ([facility]) [id number] Mixed anxiety and depressive disorder Mi xed Anxiety and Depressive Disorder Problem 05/03/2021 12:00:00 AM EDT BERKELEY ([facility]) Surgeries/Procedures Procedure Description Date Indications Data Source(s) MAMMO, screening, digital, bilateral 05/02/2021 12:00: 00 AM EDT [facility]) Results ID Date Data Source [id number] 07/05/2021 10:36:00 AM EST [facility] Name Value Range Interpretation Code Description Data Radhika rce(s) Supporting Document(s) SARS coronavirus 2 RdRp gene [Presence] in Respiratory specimen by ANA MARÍA with probe detection Not detected [facility] This lab was ordered by [facility] and reported by [facility]. ID Date Data Source [id number] 09/07/2020 12:00:00 AM EST [facility] Name Value Range Interpretation Code Description Data Radhika rce(s) Supporting Document(s) SARS-CoV-2 (COVID-19) RNA [Presence] in Respiratory specimen by ANA MARÍA with probe detection Not Detected [facility] This lab was ordered by [facility] and reported by [facility]. Procedure Social History No Information Vital Signs ID Date Data Source UNK Name Value Range Interpretation Code Description Data Source(s) Diastolic blood pressure 68 mm[Hg] 68 mm[Hg] MARCOS ([facility]) Body height 65 [in_i] 65 [in_i] B[place]KELEY ([facility]) Body mass index (BMI) [Ratio] 26.6 kg/m2 26.6 k g/m2 MARCOS ([facility]) Systolic blood pressure 102 mm[Hg] 102 mm[Hg] Hien THENA ([facility]) Body weight 2562 [oz_av] 2562 [oz_av] [facility]ARC[facility] ([facility]) Patient Treatment Plan of Care Planned Activity Planned Date Details Description Data Source (s) Fluoxetine 10 MG Oral Capsule MARCOS ([facility]) Amoxicillin 875 MG / Clavulanate 125 MG Oral Tablet MARCOS ([facility]) 24 HR venlafaxine 75 MG Extended Release Oral Capsule MARCOS ([facility]) 24 HR venlafaxine 37.5 MG Extended Release Oral Capsule MARCOS ([facility]) topiramate 50 MG Oral Tablet MARCOS ([facility]) topiramate 25 MG Oral Tablet MARCOS ([facility]) Tamsulosin hydrochloride 0.4 MG Oral Capsule MARCOS ([facility]) Sulfamethoxazole 800 MG / Trimethoprim 160 MG Oral Tablet MARCOS ([facility]) paroxetine 20 mg tablet TAKE 1 TABLET BY MOUTH ONCE DAILY MARCOS ([facility]) paroxetine 10 mg tablet TAKE 1 TABLET BY MOUTH DAILY FOR 1 WEEK THEN DECREASE TO 1/2 TABLET DAILY FOR 1 WEEK THEN DISCONTINUE [facility] ([facility]) meloxicam 7.5 MG Oral Tablet MARCOS ([facility]) 24 HR lamotrigine 50 MG Extended Release Oral Tablet [facility]ARCOS ([facility]) lamotrigine 25 MG Oral Tablet MARCOS ([facility]) fluoxetine 20 mg tablet TAKE ONE TABLET BY MOUTH EVERY DAY [facility]ARCOS ([facility]) Fluoxetine 20 MG Oral Capsule [facility]ARC[facility] ([facility])
== END 2021-08-06 04:08 | disposition left against medical advice (07) ==
LOC: M ED 20:07
DX: Z53.29 Procedure and treatment not carried out because of patient's decision for other reasons (principal)

== ENCOUNTER → 2021-09-21 | Outpatient (CLI) | payer OTHER ==
[~2021-09-21] MED LIST changes: +EFFE150C2 PO; +TRAZ-257 PO
[2021-09-21 17:40] LABS: AMORPHOUS SEDIMENT SMALL (NEGATIVE); APPEARANCE, URINE HAZY (CLEAR); BACTERIA, URINE AUTO NEGATIVE (NEGATIVE); BILIRUBIN, URINE AUTO NEGATIVE (NEGATIVE); BLOOD, URINE BLOOD NEGATIVE (NEGATIVE); COLOR, URINE AMBER (YELLOW); GLUCOSE, URINE (UA) AUTO NEGATIVE (NEGATIVE); KETONE, URINE AUTO TRACE mg/dL (NEGATIVE); LEUKOCYTE ESTERASE, URINE AUTO NEGATIVE (NEGATIVE); MUCUS, URINE SMALL (NEGATIVE); NITRITE, URINE AUTO NEGATIVE (NEGATIVE); PROTEIN, URINE AUTO 2+ mg/dL (NEGATIVE); RBC, URINE AUTO 0 /HPF (0-3); SPECIFIC GRAVITY URINE AUTO 1.026 (1.002-1.035); SQUAMOUS EPITHELIAL CELL UR AU 5 /HPF (0-6); UROBILINOGEN, URINE AUTO 0.2 mg/dL (0.0-2.0); WBC, URINE AUTO 1 /HPF (0-3)
[2021-09-21 18:07] LABS: ALBUMIN 4.1 GM/DL (3.2-5.2); ALT/SGPT 230 U/L (12-78); BILIRUBIN,TOTAL 0.7 MG/DL (0.2-1.0); BLOOD UREA NITROGEN 23 MG/DL (7-18); CALCIUM LEVEL 9.4 MG/DL (8.5-10.1); CARBON DIOXIDE LEVEL 24 MEQ/L (21-32); CHLORIDE LEVEL 105 MEQ/L (98-107); CREATININE FOR GFR 0.95 MG/DL (0.55-1.30); GLOMERULAR FILTRATION RATE > 60.0 (>58); GLUCOSE, FASTING 103 MG/DL (70-100); POTASSIUM SERUM 4.3 MEQ/L (3.5-5.1); SODIUM LEVEL 136 MEQ/L (136-145); TOTAL PROTEIN 8.4 GM/DL (6.4-8.2)
[2021-09-22 11:03] LABS: HEPATITIS B SURFACE ANTIGEN NEGATIVE (NEGATIVE)
== END ==
LOC: M PLALAB 14:59
PROVIDERS: ATTEND Internal Medicine Infectious Disease
DX: B18.2 Chronic viral hepatitis C (principal); R50.9 Fever, unspecified

== ENCOUNTER → 2022-06-25 | Outpatient (REF) | payer OTHER ==
[~2022-06-25] MED LIST changes: -AFRI0.058; +ALBU8.5H INH; +AMLO1TAB24 PO; +CEFD300C41 PO; +CITA10TA6 PO; +DOXY100T PO; +HYDR1CAP25 PO; +LORA-674 PO; +OXYM15SP2; +VENL150C43 PO
[2022-06-25 18:20] LABS: APPEARANCE, URINE MANUAL CLOUDY (CLEAR); BILIRUBIN, URINE MANUAL NEGATIVE (NEGATIVE); BLOOD URINE MANUAL NEGATIVE (NEGATIVE); COLOR, URINE MANUAL YELLOW (YELLOW); GLUCOSE, URINE (UA) MANUAL NEGATIVE (NEGATIVE); KETONE, URINE MANUAL NEGATIVE (NEGATIVE); LEUKOCYTE ESTERASE, URINE MAN POSITIVE (NEGATIVE); NITRITE, URINE MANUAL NEGATIVE (NEGATIVE); PROTEIN, URINE MANUAL NEGATIVE (NEGATIVE); SPECIFIC GRAVITY,URINE MANUAL 1.025 (1.002-1.035); UROBILINOGEN, URINE MANUAL NORMAL (NORMAL)
[2022-06-25 18:31] LABS: AMORPHOUS SEDIMENT, URINE LARGE AMOUNT (NEGATIVE); BACTERIA, URINE NONE SEEN; CALCIUM OXALATE CRYSTALS,URINE SMALL AMOUNT /hpf; HYALINE CAST, URINE NONE SEEN /lpf (0-1); RBC, URINE NONE SEEN /hpf (0-3); SQUAMOUS EPITHELIAL CELL URINE SMALL AMOUNT /hpf (SMALL AMT); WBC, URINE NONE SEEN /hpf (0-3)
== END ==
LOC: M SMT 17:31
PROVIDERS: ATTEND Physician Assistant
DX: R32 Unspecified urinary incontinence (principal)

== ENCOUNTER → 2022-10-01 | Outpatient (REF) | payer OTHER | LOC: M LAB REF 16:30 | PROVIDERS: ATTEND Nurse Practitioner Family | DX: J02.9 Acute pharyngitis, unspecified (principal) ==

== ENCOUNTER → 2022-10-22 | Outpatient (CLI) | payer OTHER ==
[~2022-10-22] MED LIST changes: +TOPI-254; -TOPI50TA9
[2022-10-22 13:50] LABS: BASO % 0.6 % (0.0-1.0); EOS # 0.3 10^3/uL (0.0-0.5); HEMATOCRIT 39.7 % (36.0-47.0); HEMOGLOBIN 12.9 g/dl (12.0-15.5); LYMPH # 2.3 10^3/uL (1.5-5.0); LYMPH % 35.2 % (24.0-44.0); MEAN CORPUSCULAR HEMOGLOBIN 31.7 pg (27.0-33.0); MEAN CORPUSCULAR HGB CONC 32.5 g/dl (32.0-36.5); MEAN CORPUSCULAR VOLUME 97.5 fl (80.0-96.0); MONO # 0.3 10^3/uL (0.0-0.8); NEUTROPHILS # 3.4 10^3/uL (1.5-8.5); NEUTROPHILS % 53.9 % (36.0-66.0); PLATELET COUNT, AUTOMATED 212 10^3/uL (150-450); RED BLOOD COUNT 4.07 10^6/uL (4.00-5.40); WHITE BLOOD COUNT 6.4 10^3/uL (4.0-10.0)
[2022-10-22 14:07] LABS: HEMOGLOBIN A1c 5.3 % (4.0-6.0)
[2022-10-22 14:15] LABS: ALBUMIN 3.7 G/DL (3.2-5.2); ALKALINE PHOSPHATASE 106 U/L (46-116); ALT/SGPT 19 U/L (7.0-40); AST/SGOT 27 U/L (<34); BILIRUBIN,TOTAL 0.2 MG/DL (0.3-1.2); BLOOD UREA NITROGEN 16 MG/DL (9-23); CALCIUM LEVEL 9.2 MG/DL (8.5-10.1); CARBON DIOXIDE LEVEL 27 MMOL/L (20-31); CHLORIDE LEVEL 105 MMOL/L (98-107); CHOLESTEROL LEVEL 235 MG/DL (<200); CHOLESTEROL RISK RATIO 2.85 (<5); CREATININE FOR GFR 0.72 MG/DL (0.55-1.30); GLOMERULAR FILTRATION RATE > 60.0 (>58); GLUCOSE, FASTING 134 MG/DL (60-100); HDL CHOLESTEROL 82.2 MG/DL (>40); NON-HDL-C 153 MG/DL; POTASSIUM SERUM 4.2 MMOL/L (3.5-5.1); SODIUM LEVEL 140 MMOL/L (136-145); TOTAL PROTEIN 7.4 G/DL (5.7-8.2); TRIGLYCERIDES LEVEL 174 MG/DL (<150)
[2022-10-22 14:17] LABS: THYROID STIMULATING HORMONE 1.349 uIU/ML (0.55-4.78)
== END ==
LOC: M PLALAB 10:53
PROVIDERS: ATTEND Nurse Practitioner Family
DX: Z13.228 Encounter for screening for other metabolic disorders (principal)

== ENCOUNTER → 2022-10-22 | Outpatient (CLI) | payer OTHER | LOC: M WHC 10:15 | PROVIDERS: ATTEND Nurse Practitioner Family | DX: Z12.31 Encounter for screening mammogram for malignant neoplasm of breast (principal) ==

== ENCOUNTER 2022-11-22 15:49 | Emergency (ER) | payer OTHER ==
[~2022-11-22] VITALS: Ht 162.6 cm; Wt 80.6 kg
[2022-11-22 18:24] LABS: BASO % 0.4 % (0.0-1.0); EOS # 0.2 10^3/uL (0.0-0.5); EOS % 2.3 % (0.0-3.0); HEMATOCRIT 36.3 % (36.0-47.0); HEMOGLOBIN 12.2 g/dl (12.0-15.5); LYMPH # 1.5 10^3/uL (1.5-5.0); LYMPH % 18.2 % (24.0-44.0); MEAN CORPUSCULAR HEMOGLOBIN 32.2 pg (27.0-33.0); MEAN CORPUSCULAR HGB CONC 33.6 g/dl (32.0-36.5); MEAN CORPUSCULAR VOLUME 95.8 fl (80.0-96.0); MONO # 0.4 10^3/uL (0.0-0.8); MONO % 4.6 % (2.0-8.0); NEUTROPHILS # 6.3 10^3/uL (1.5-8.5); PLATELET COUNT, AUTOMATED 184 10^3/uL (150-450); RED BLOOD COUNT 3.79 10^6/uL (4.00-5.40); WHITE BLOOD COUNT 8.4 10^3/uL (4.0-10.0)
[2022-11-22 18:30] VITALS: BP 174/85
[2022-11-22 18:38] LABS: ALBUMIN 3.9 G/DL (3.2-5.2); ALKALINE PHOSPHATASE 123 U/L (46-116); ALT/SGPT 17 U/L (7.0-40); AST/SGOT 22 U/L (<34); BILIRUBIN,DIRECT 0.1 MG/DL (<0.4); BILIRUBIN,TOTAL 0.4 MG/DL (0.3-1.2); BLOOD UREA NITROGEN 12 MG/DL (9-23); CALCIUM LEVEL 9.2 MG/DL (8.5-10.1); CARBON DIOXIDE LEVEL 27 MMOL/L (20-31); CHLORIDE LEVEL 103 MMOL/L (98-107); CREATININE FOR GFR 0.66 MG/DL (0.55-1.30); GLOMERULAR FILTRATION RATE > 60.0 (>58); GLUCOSE, FASTING 86 MG/DL (60-100); MAGNESIUM LEVEL 2.1 MG/DL (1.8-2.4); POTASSIUM SERUM 3.9 MMOL/L (3.5-5.1); SODIUM LEVEL 136 MMOL/L (136-145); TOTAL PROTEIN 7.3 G/DL (5.7-8.2)
== END 2022-11-22 19:37 | disposition home or self-care (01) ==
LOC: EDBD 15:49 → M ED 15:49
DX: F19.10 Other psychoactive substance abuse, uncomplicated (principal); R56.9 Unspecified convulsions; I10 Essential (primary) hypertension; F17.210 Nicotine dependence, cigarettes, uncomplicated; Z88.8 Allergy status to other drugs, medicaments and biological substances; Z79.51 Long term (current) use of inhaled steroids; Z79.899 Other long term (current) drug therapy

== ENCOUNTER → 2023-06-26 | Outpatient (REF) | payer OTHER ==
[~2023-06-26] MED LIST changes: -CEFD300C41 PO; +CEFD300C42 PO; +LORA-1041; +LORA-1041 PO; -LORA-674; -LORA-674 PO
[2023-06-26 17:29] LABS: BASO % 0.5 % (0.0-1.0); EOS # 0.1 10^3/uL (0.0-0.5); EOS % 1.4 % (0.0-3.0); HEMATOCRIT 36.9 % (36.0-47.0); HEMOGLOBIN 12.3 g/dl (12.0-15.5); LYMPH # 2.2 10^3/uL (1.5-5.0); LYMPH % 39.6 % (24.0-44.0); MEAN CORPUSCULAR HEMOGLOBIN 32.1 pg (27.0-33.0); MEAN CORPUSCULAR HGB CONC 33.3 g/dl (32.0-36.5); MEAN CORPUSCULAR VOLUME 96.3 fl (80.0-96.0); MONO # 0.5 10^3/uL (0.0-0.8); MONO % 8.8 % (2.0-8.0); NEUTROPHILS # 2.7 10^3/uL (1.5-8.5); NEUTROPHILS % 49.2 % (36.0-66.0); PLATELET COUNT, AUTOMATED 200 10^3/uL (150-450); RED BLOOD COUNT 3.83 10^6/uL (4.00-5.40); WHITE BLOOD COUNT 5.6 10^3/uL (4.0-10.0)
[2023-06-26 17:49] LABS: HEMOGLOBIN A1c 5.1 % (4.0-6.0)
[2023-06-26 17:50] LABS: ERYTHROCYTE SEDIMENTATION RATE 19 mm/hr (0-20)
[2023-06-26 17:52] LABS: RHEUMATOID FACTOR QUANT 3.8 IU/ML (<14)
[2023-06-26 17:55] LABS: ALBUMIN 3.9 G/DL (3.2-5.2); ALKALINE PHOSPHATASE 94 U/L (46-116); ALT/SGPT 20 U/L (7.0-40); AST/SGOT 17 U/L (<34); BILIRUBIN,TOTAL 0.3 MG/DL (0.3-1.2); BLOOD UREA NITROGEN 12 MG/DL (9-23); CALCIUM LEVEL 8.9 MG/DL (8.5-10.1); CARBON DIOXIDE LEVEL 24 MMOL/L (20-31); CHLORIDE LEVEL 104 MMOL/L (98-107); CHOLESTEROL LEVEL 244 MG/DL (<200); CHOLESTEROL RISK RATIO 3.04 (<5); CREATININE FOR GFR 0.55 MG/DL (0.55-1.30); GLOMERULAR FILTRATION RATE > 60.0 (>58); GLUCOSE, FASTING 75 MG/DL (60-100); HDL CHOLESTEROL 80.1 MG/DL (>40); LDL CHOLESTEROL 125.7 MG/DL (<100); NON-HDL-C 163.9 MG/DL; POTASSIUM SERUM 4.4 MMOL/L (3.5-5.1); SODIUM LEVEL 137 MMOL/L (136-145); THYROID STIMULATING HORMONE 1.477 uIU/ML (0.55-4.78); TOTAL PROTEIN 7.2 G/DL (5.7-8.2); TRIGLYCERIDES LEVEL 191 MG/DL (<150)
== END ==
LOC: M LAB REF 16:49
PROVIDERS: ATTEND Nurse Practitioner Family
DX: R22.33 Localized swelling, mass and lump, upper limb, bilateral (principal); Z13.228 Encounter for screening for other metabolic disorders

== ENCOUNTER 2023-07-10 13:18 | Emergency (ER) | payer OTHER ==
[~2023-07-10] VITALS: Ht 162.6 cm; Wt 86.8 kg
[2023-07-10 13:19] VITALS: BP 164/85; TEMP 98.4; O2SAT 97
[2023-07-10] MEDS ORDERED: HYDR12CA (13:43)
[2023-07-10] MEDS ORDERED: SERT25TA21 (13:43)
[2023-07-10] MEDS ORDERED: ATOR1TAB21 (13:43)
== END 2023-07-10 16:02 | disposition left against medical advice (07) ==
LOC: M ED 13:18
DX: Z53.21 Procedure and treatment not carried out due to patient leaving prior to being seen by health care provider (principal)

== ENCOUNTER 2023-07-10 17:10 | Emergency (ER) | payer OTHER ==
[~2023-07-10] VITALS: Ht 162.6 cm; Wt 86.8 kg
[~2023-07-10 17:10] MED LIST changes: +ATOR1TAB21; +HYDR12CA; +SERT25TA21
[2023-07-10 21:58] LABS: HEMATOCRIT 36.4 % (36.0-47.0); HEMOGLOBIN 12.6 g/dl (12.0-15.5); MEAN CORPUSCULAR HEMOGLOBIN 32.7 pg (27.0-33.0); MEAN CORPUSCULAR HGB CONC 34.6 g/dl (32.0-36.5); MEAN CORPUSCULAR VOLUME 94.5 fl (80.0-96.0); PLATELET COUNT, AUTOMATED 177 10^3/uL (150-450); RED BLOOD COUNT 3.85 10^6/uL (4.00-5.40); WHITE BLOOD COUNT 6.4 10^3/uL (4.0-10.0)
[2023-07-10 22:33] LABS: AMPHETAMINES LEVEL URINE NEGATIVE (NEGATIVE); BARBITURATES URINE NEGATIVE (NEGATIVE); METHADONE URINE NEGATIVE (NEGATIVE); OPIATES URINE NEGATIVE (NEGATIVE)
[2023-07-10 22:34] LABS: CANNABINOIDS URINE NEGATIVE (NEGATIVE); PHENCYCLIDINE URINE NEGATIVE (NEGATIVE)
[2023-07-10 22:34] LABS: ETHYL ALCOHOL (ETHANOL) 0.006 % (0.000-0.010)
[2023-07-10 22:35] LABS: BENZODIAZEPINES URINE POSITIVE (NEGATIVE); COCAINE METABOLITE URINE POSITIVE (NEGATIVE)
[2023-07-10 22:36] LABS: ALKALINE PHOSPHATASE 92 U/L (46-116); ALT/SGPT 32 U/L (7.0-40); AST/SGOT 38 U/L (<34); BILIRUBIN,DIRECT 0.2 MG/DL (<0.4); BILIRUBIN,TOTAL 0.6 MG/DL (0.3-1.2); SALICYLATE LEVEL < 3.0 MG/DL (<30); TOTAL PROTEIN 7.4 G/DL (5.7-8.2)
[2023-07-10 23:37] LABS: BLOOD UREA NITROGEN 13 MG/DL (9-23); CALCIUM LEVEL 8.8 MG/DL (8.5-10.1); CARBON DIOXIDE LEVEL 27 MMOL/L (20-31); CHLORIDE LEVEL 104 MMOL/L (98-107); CREATININE FOR GFR 0.69 MG/DL (0.55-1.30); GLOMERULAR FILTRATION RATE > 60.0 (>58); GLUCOSE, FASTING 95 MG/DL (60-100); POTASSIUM SERUM 3.4 MMOL/L (3.5-5.1); SODIUM LEVEL 139 MMOL/L (136-145)
[2023-07-11 00:03] VITALS: BP 142/76; TEMP 96.9; O2SAT 98
== END 2023-07-11 00:21 | disposition home or self-care (01) ==
LOC: M ED 17:10
DX: M51.16 Intervertebral disc disorders with radiculopathy, lumbar region (principal); R32 Unspecified urinary incontinence; M54.2 Cervicalgia; G60.9 Hereditary and idiopathic neuropathy, unspecified; J45.909 Unspecified asthma, uncomplicated; F17.200 Nicotine dependence, unspecified, uncomplicated; Z88.8 Allergy status to other drugs, medicaments and biological substances; Z79.899 Other long term (current) drug therapy; Z79.51 Long term (current) use of inhaled steroids

== ENCOUNTER → 2023-08-02 | Outpatient (CLI) | payer OTHER ==
[~2023-08-02] MED LIST changes: +CEFD1CAP9 PO; -CEFD300C42 PO; -EFFE150C2 PO; +EFFE150C3 PO; -EFFE37.5 PO; +EFFE37.52 PO; +TOPI-21; -TOPI-254
== END ==
LOC: M SOG 08:00
PROVIDERS: ATTEND Orthopaedic Surgery
DX: M51.36 Other intervertebral disc degeneration, lumbar region (principal); M54.50 Low back pain, unspecified

== ENCOUNTER 2023-10-03 10:48 | Emergency (ER) | payer OTHER ==
[~2023-10-03] VITALS: Ht 162.6 cm; Wt 86.0 kg
[2023-10-03] MEDS ORDERED: QUET50TA4 (11:10)
[2023-10-03] MEDS: methylPREDNISolone 125MG 2ML VIAL IV ONE (13:52)
[2023-10-03 14:16] LABS: HEMOGLOBIN 12.6 g/dl (12.0-15.5); MEAN CORPUSCULAR HEMOGLOBIN 32.1 pg (27.0-33.0); MEAN CORPUSCULAR VOLUME 91.6 fl (80.0-96.0); PLATELET COUNT, AUTOMATED 187 10^3/uL (150-450); RED BLOOD COUNT 3.93 10^6/uL (4.00-5.40); WHITE BLOOD COUNT 7.4 10^3/uL (4.0-10.0)
[2023-10-03 14:24] LABS: ERYTHROCYTE SEDIMENTATION RATE 30 mm/hr (0-20)
[2023-10-03 14:35] LABS: BLOOD UREA NITROGEN 12 MG/DL (9-23); CALCIUM LEVEL 9.5 MG/DL (8.5-10.1); CARBON DIOXIDE LEVEL 27 MMOL/L (20-31); CHLORIDE LEVEL 106 MMOL/L (98-107); CREATININE FOR GFR 0.57 MG/DL (0.55-1.30); GLOMERULAR FILTRATION RATE > 60.0 (>58); GLUCOSE, FASTING 95 MG/DL (60-100); POTASSIUM SERUM 3.2 MMOL/L (3.5-5.1); SODIUM LEVEL 141 MMOL/L (136-145)
[2023-10-03] MEDS ORDERED: PRED20TA PO (15:15)
[2023-10-03 15:36] VITALS: BP 182/86; TEMP 97.1; O2SAT 96
== END 2023-10-03 15:38 | disposition home or self-care (01) ==
LOC: M ED 10:48
DX: M54.50 Low back pain, unspecified (principal); I10 Essential (primary) hypertension; E78.5 Hyperlipidemia, unspecified; F17.210 Nicotine dependence, cigarettes, uncomplicated; Z88.8 Allergy status to other drugs, medicaments and biological substances; Z79.51 Long term (current) use of inhaled steroids; Z79.899 Other long term (current) drug therapy; Z79.52 Long term (current) use of systemic steroids
CPT/HCPCS: 80048; 85027; 85652; 86140; 96374; 99284; J2930

== ENCOUNTER 2023-10-18 12:18 | Emergency (ER) | payer OTHER ==
[~2023-10-18] VITALS: Ht 162.6 cm; Wt 86.4 kg
[~2023-10-18 12:18] MED LIST changes: +QUET50TA4
[2023-10-18 13:41] LABS: BASO % 0.5 % (0.0-1.0); EOS # 0.1 10^3/uL (0.0-0.5); EOS % 1.7 % (0.0-3.0); HEMATOCRIT 36.9 % (36.0-47.0); HEMOGLOBIN 12.4 g/dl (12.0-15.5); MEAN CORPUSCULAR HEMOGLOBIN 31.8 pg (27.0-33.0); MEAN CORPUSCULAR HGB CONC 33.6 g/dl (32.0-36.5); MEAN CORPUSCULAR VOLUME 94.6 fl (80.0-96.0); MONO # 0.5 10^3/uL (0.0-0.8); MONO % 5.7 % (2.0-8.0); NEUTROPHILS # 4.6 10^3/uL (1.5-8.5); NEUTROPHILS % 55.7 % (36.0-66.0); PLATELET COUNT, AUTOMATED 212 10^3/uL (150-450); WHITE BLOOD COUNT 8.3 10^3/uL (4.0-10.0)
[2023-10-18] MEDS ORDERED: ISOVUE-370 76% 100ML VIAL As Ordered ONE (13:42)
[2023-10-18 14:12] LABS: CPK CREATINE PHOSPHOKINASE 99 U/L (34-145)
[2023-10-18 14:25] LABS: LIPASE 38 U/L (12-53)
[2023-10-18 14:27] LABS: ALBUMIN 3.5 G/DL (3.2-5.2); ALKALINE PHOSPHATASE 81 U/L (46-116); ALT/SGPT 20 U/L (7.0-40); AST/SGOT 11 U/L (<34); BILIRUBIN,DIRECT < 0.1 MG/DL (<0.4); BILIRUBIN,TOTAL 0.3 MG/DL (0.3-1.2); CK-MB VALUE MASS 1.1 NG/ML (<3.6); MB/CK RELATIVE INDEX 1.11 (< OR =4); TOTAL PROTEIN 6.9 G/DL (5.7-8.2)
[2023-10-18 15:30] LABS: MB/CK RELATIVE INDEX 0.99 (< OR =4)
[2023-10-18] MEDS ORDERED: AZIT500T5 PO (15:44)
[2023-10-18 15:48] VITALS: O2SAT 96
[2023-10-18 16:01] VITALS: BP 108/57; TEMP 98.1
== END 2023-10-18 16:09 | disposition home or self-care (01) ==
LOC: M ED 12:18
DX: J18.1 Lobar pneumonia, unspecified organism (principal); I10 Essential (primary) hypertension; E78.5 Hyperlipidemia, unspecified; J45.909 Unspecified asthma, uncomplicated; F41.9 Anxiety disorder, unspecified; F32.9 Major depressive disorder, single episode, unspecified; F19.11 Other psychoactive substance abuse, in remission; Z85.41 Personal history of malignant neoplasm of cervix uteri; F17.200 Nicotine dependence, unspecified, uncomplicated; Z79.899 Other long term (current) drug therapy; Z88.5 Allergy status to narcotic agent; Z88.8 Allergy status to other drugs, medicaments and biological substances
CPT/HCPCS: 71045; 71275; 80047; 80076; 82550; 82553; 83690; 85025; 93005; 93041; 94760; 99285; Q9967

== ENCOUNTER → 2023-10-24 | Outpatient (REF) ==
[~2023-10-24] MED LIST changes: +AZIT500T5 PO
== END ==
LOC: M LAB 11:49
PROVIDERS: ATTEND Internal Medicine
DX: M51.36 Other intervertebral disc degeneration, lumbar region (principal)

== ENCOUNTER → 2023-11-01 | Outpatient (CLI) | payer OTHER | LOC: M SOG 07:53 | PROVIDERS: ATTEND Orthopaedic Surgery | DX: M47.27 Other spondylosis with radiculopathy, lumbosacral region (principal); Z53.8 Procedure and treatment not carried out for other reasons ==

== ENCOUNTER 2024-03-23 22:02 | Emergency (ER) | payer OTHER ==
[~2024-03-23] VITALS: Ht 162.6 cm; Wt 81.8 kg
[2024-03-23 22:03] VITALS: TEMP 97.5
[2024-03-23] MEDS: CYCLOBENZAPRINE 5MG TABLET PO ONE (23:35)
[2024-03-24 00:27] LABS: BASO % 0.7 % (0.0-1.0); EOS # 0.3 10^3/uL (0.0-0.5); EOS % 4.7 % (0.0-3.0); HEMOGLOBIN 11.5 g/dl (12.0-15.5); LYMPH # 2.7 10^3/uL (1.5-5.0); LYMPH % 49.4 % (24.0-44.0); MEAN CORPUSCULAR HEMOGLOBIN 31.7 pg (27.0-33.0); MEAN CORPUSCULAR HGB CONC 33.8 g/dl (32.0-36.5); MEAN CORPUSCULAR VOLUME 93.7 fl (80.0-96.0); MONO # 0.4 10^3/uL (0.0-0.8); MONO % 6.3 % (2.0-8.0); NEUTROPHILS # 2.2 10^3/uL (1.5-8.5); NEUTROPHILS % 38.7 % (36.0-66.0); PLATELET COUNT, AUTOMATED 169 10^3/uL (150-450); RED BLOOD COUNT 3.63 10^6/uL (4.00-5.40); WHITE BLOOD COUNT 5.6 10^3/uL (4.0-10.0)
[2024-03-24 00:47] LABS: BLOOD UREA NITROGEN 15 MG/DL (9-23); CALCIUM LEVEL 8.7 MG/DL (8.5-10.1); CARBON DIOXIDE LEVEL 28 MMOL/L (20-31); CHLORIDE LEVEL 107 MMOL/L (98-107); CK-MB VALUE MASS 2.8 NG/ML (<3.6); CREATININE FOR GFR 0.67 MG/DL (0.55-1.30); GLOMERULAR FILTRATION RATE > 60.0 (>51); GLUCOSE, FASTING 123 MG/DL (60-100); POTASSIUM SERUM 4.1 MMOL/L (3.5-5.1); SODIUM LEVEL 141 MMOL/L (136-145)
[2024-03-24 00:50] LABS: HCG, SERUM QUALITATIVE NEGATIVE (NEGATIVE)
[2024-03-24 00:51] LABS: CPK CREATINE PHOSPHOKINASE 195 U/L (34-145); MB/CK RELATIVE INDEX 1.43 (< OR =4)
[2024-03-24 01:48] LABS: CK-MB VALUE MASS 2.6 NG/ML (<3.6)
[2024-03-24 01:51] LABS: CPK CREATINE PHOSPHOKINASE 192 U/L (34-145); MB/CK RELATIVE INDEX 1.35 (< OR =4)
[2024-03-24 02:14] VITALS: BP 142/82; O2SAT 97
== END 2024-03-24 02:27 | disposition home or self-care (01) ==
LOC: M ED 22:02
DX: R07.89 Other chest pain (principal); R73.03 Prediabetes; E78.5 Hyperlipidemia, unspecified; J45.909 Unspecified asthma, uncomplicated; F19.11 Other psychoactive substance abuse, in remission; F17.200 Nicotine dependence, unspecified, uncomplicated; Z79.899 Other long term (current) drug therapy; Z88.5 Allergy status to narcotic agent; Z88.8 Allergy status to other drugs, medicaments and biological substances

== ENCOUNTER → 2024-03-23 | Outpatient (REF) | payer OTHER ==
[~2024-03-23] MED LIST changes: +FLUO-365; -FLUO20CA22
[2024-03-24 07:54] LABS: BASO % 0.5 % (0.0-1.0); EOS # 0.2 10^3/uL (0.0-0.5); EOS % 3.7 % (0.0-3.0); HEMATOCRIT 37.3 % (36.0-47.0); LYMPH # 2.8 10^3/uL (1.5-5.0); MEAN CORPUSCULAR HEMOGLOBIN 31.7 pg (27.0-33.0); MEAN CORPUSCULAR HGB CONC 32.2 g/dl (32.0-36.5); MEAN CORPUSCULAR VOLUME 98.4 fl (80.0-96.0); MONO # 0.5 10^3/uL (0.0-0.8); NEUTROPHILS # 2.3 10^3/uL (1.5-8.5); NEUTROPHILS % 39.6 % (36.0-66.0); PLATELET COUNT, AUTOMATED 189 10^3/uL (150-450); RED BLOOD COUNT 3.79 10^6/uL (4.00-5.40); WHITE BLOOD COUNT 5.7 10^3/uL (4.0-10.0)
[2024-03-24 08:01] LABS: ALBUMIN 4.4 G/DL (3.2-5.2); ALKALINE PHOSPHATASE 81 U/L (46-116); ALT/SGPT 19 U/L (7.0-40); AST/SGOT 12 U/L (<34); BILIRUBIN,TOTAL 0.3 MG/DL (0.3-1.2); BLOOD UREA NITROGEN 17 MG/DL (9-23); CALCIUM LEVEL 9.3 MG/DL (8.5-10.1); CARBON DIOXIDE LEVEL 27 MMOL/L (20-31); CHLORIDE LEVEL 105 MMOL/L (98-107); CHOLESTEROL LEVEL 179 MG/DL (<200); CHOLESTEROL RISK RATIO 2.87 (<5); CREATININE FOR GFR 0.73 MG/DL (0.55-1.30); GLOMERULAR FILTRATION RATE > 60.0 (>51); GLUCOSE, FASTING 83 MG/DL (60-100); HDL CHOLESTEROL 62.2 MG/DL (>40); LDL CHOLESTEROL 81.4 MG/DL (<100); MAGNESIUM LEVEL 1.8 MG/DL (1.8-2.4); NON-HDL-C 116.8 MG/DL; POTASSIUM SERUM 3.7 MMOL/L (3.5-5.1); SODIUM LEVEL 139 MMOL/L (136-145); TOTAL PROTEIN 7.2 G/DL (5.7-8.2); TRIGLYCERIDES LEVEL 177 MG/DL (<150)
[2024-03-24 08:05] LABS: THYROID STIMULATING HORMONE 1.156 uIU/ML (0.55-4.78); TOTAL 25(OH) VITAMIN D 75.8 NG/ML (20.0-100.0)
[2024-03-24 09:04] LABS: HEMOGLOBIN A1c 5.5 % (4.0-6.0)
== END ==
LOC: M LAB REF 15:06
PROVIDERS: ATTEND Nurse Practitioner Family
DX: E55.9 Vitamin D deficiency, unspecified (principal); E66.3 Overweight

== ENCOUNTER → 2024-04-14 | Outpatient (CLI) | payer OTHER | LOC: M RAD 11:05 | PROVIDERS: ATTEND Nurse Practitioner Family | DX: Z82.49 Family history of ischemic heart disease and other diseases of the circulatory system (principal) ==

== ENCOUNTER → 2024-04-23 | Outpatient (REF) | payer OTHER ==
[2024-04-23 18:40] LABS: BASO % 0.6 % (0.0-1.0); EOS # 0.3 10^3/uL (0.0-0.5); EOS % 3.8 % (0.0-3.0); HEMOGLOBIN 11.8 g/dl (12.0-15.5); LYMPH # 2.2 10^3/uL (1.5-5.0); LYMPH % 32.9 % (24.0-44.0); MEAN CORPUSCULAR HEMOGLOBIN 30.9 pg (27.0-33.0); MEAN CORPUSCULAR HGB CONC 32.8 g/dl (32.0-36.5); MEAN CORPUSCULAR VOLUME 94.2 fl (80.0-96.0); MONO # 0.4 10^3/uL (0.0-0.8); MONO % 6.1 % (2.0-8.0); NEUTROPHILS # 3.7 10^3/uL (1.5-8.5); NEUTROPHILS % 56.1 % (36.0-66.0); PLATELET COUNT, AUTOMATED 195 10^3/uL (150-450); RED BLOOD COUNT 3.82 10^6/uL (4.00-5.40); WHITE BLOOD COUNT 6.6 10^3/uL (4.0-10.0)
[2024-04-23 19:07] LABS: PERCENT SATURATION 24.7 % (13.2-45.0)
[2024-04-23 19:17] LABS: FOLATE 10.3 NG/ML (>5.4)
== END ==
LOC: M LAB REF 16:31
PROVIDERS: ATTEND Nurse Practitioner Family
DX: E66.3 Overweight (principal)

== ENCOUNTER → 2024-04-27 | Outpatient (CLI) | payer OTHER | LOC: M RAD 11:35 | PROVIDERS: ATTEND Nurse Practitioner Family | DX: M25.571 Pain in right ankle and joints of right foot (principal); M25.572 Pain in left ankle and joints of left foot ==

== ENCOUNTER → 2024-04-30 | Outpatient (CLI) | payer OTHER ==
[2024-04-30 12:49] LABS: HEMOGLOBIN A1c 5.6 % (4.0-6.0)
[2024-04-30 14:12] LABS: FOLATE 9.5 NG/ML (>5.4); THYROID STIMULATING HORMONE 0.902 uIU/ML (0.55-4.78)
[2024-05-01 09:41] LABS: T P ELECTROPHORESIS SO 7.3 g/dL (6.1-8.1)
[2024-05-05 08:57] LABS: ALBUMIN SPEP 4.5 g/dL (3.8-4.8); ALPHA-1-GLOBULINS SO 0.3 g/dL (0.2-0.3); ALPHA-2-GLOBULINS SO 0.8 g/dL (0.5-0.9); BETA 2 GLOBULIN 0.3 g/dL (0.2-0.5); BETA-GLOBULIN SO 0.5 g/dL (0.4-0.6); GAMMA GLOBULINS SO 0.9 g/dL (0.8-1.7)
[2024-05-05 11:51] LABS: VITAMIN E(ALPHA TOCOPHEROL) 11.5 mg/L (5.7-19.9); VITAMIN E(GAMMA TOCOPHEROL) < 1.0 mg/L (<=4.3)
[2024-05-06 16:43] LABS: VITAMIN B1 LEVEL WHOLE BLOOD 99 nmol/L (78-185)
[2024-05-06 17:07] LABS: VITAMIN B6,PYRIDOXAL PHOSPHATE 10.6 ng/mL (2.1-21.7)
== END ==
LOC: M LAB 10:30
PROVIDERS: ATTEND Psychiatry & Neurology Neurology
DX: E11.9 Type 2 diabetes mellitus without complications (principal); E53.8 Deficiency of other specified B group vitamins; G60.9 Hereditary and idiopathic neuropathy, unspecified

== ENCOUNTER 2024-05-27 16:33 | Observation (INO) | payer OTHER ==
[~2024-05-27] VITALS: Ht 162.6 cm; Wt 83.6 kg
[~2024-05-27 16:33] MED LIST changes: -ATOR1TAB21; +ATOR1TAB21 PO; -HYDR12CA; +HYDR12CA PO
[2024-05-27] MEDS ORDERED: HOME MED LIST COMPLETE! XX SCH (18:05)
[2024-05-27] MEDS ORDERED: IBUP200T46 PO (18:05)
[2024-05-27] MEDS ORDERED: ACET650T15 PO (18:05)
[2024-05-27] MEDS ORDERED: D 50CAP2 PO (18:05)
[2024-05-27 18:45] LABS: BASO % 0.6 % (0.0-1.0); EOS # 0.2 10^3/uL (0.0-0.5); EOS % 3.3 % (0.0-3.0); HEMATOCRIT 35.4 % (36.0-47.0); LYMPH # 2.7 10^3/uL (1.5-5.0); LYMPH % 56.1 % (24.0-44.0); MEAN CORPUSCULAR HEMOGLOBIN 31.7 pg (27.0-33.0); MEAN CORPUSCULAR HGB CONC 33.9 g/dl (32.0-36.5); MEAN CORPUSCULAR VOLUME 93.4 fl (80.0-96.0); MONO # 0.3 10^3/uL (0.0-0.8); MONO % 6.9 % (2.0-8.0); NEUTROPHILS # 1.6 10^3/uL (1.5-8.5); NEUTROPHILS % 32.9 % (36.0-66.0); PLATELET COUNT, AUTOMATED 166 10^3/uL (150-450); RED BLOOD COUNT 3.79 10^6/uL (4.00-5.40); WHITE BLOOD COUNT 4.8 10^3/uL (4.0-10.0)
[2024-05-27 19:00] LABS: INR 0.95; PARTIAL THROMBOPLASTIN TIME 27.5 SECONDS (24.8-34.2); PROTHROMBIN TIME 12.4 SECONDS (12.5-14.5)
[2024-05-27 19:12] LABS: LIPASE 35 U/L (12-53)
[2024-05-27 19:15] LABS: ALBUMIN 4.2 G/DL (3.2-5.2); ALKALINE PHOSPHATASE 75 U/L (46-116); ALT/SGPT 15 U/L (7.0-40); AST/SGOT 11 U/L (<34); BILIRUBIN,DIRECT < 0.1 MG/DL (<0.4); BILIRUBIN,TOTAL 0.3 MG/DL (0.3-1.2); BLOOD UREA NITROGEN 12 MG/DL (9-23); CALCIUM LEVEL 9.9 MG/DL (8.5-10.1); CARBON DIOXIDE LEVEL 28 MMOL/L (20-31); CHLORIDE LEVEL 107 MMOL/L (98-107); GLOMERULAR FILTRATION RATE > 60.0 (>51); GLUCOSE, FASTING 96 MG/DL (60-100); POTASSIUM SERUM 3.7 MMOL/L (3.5-5.1); SODIUM LEVEL 141 MMOL/L (136-145); TOTAL PROTEIN 7.4 G/DL (5.7-8.2)
[2024-05-27] MEDS ORDERED: MOM 30ML SUSPENSION UDC PO PRN (21:40)
[2024-05-27] MEDS ORDERED: ALBUTEROL 90 MCG/ACT 8GM HFA INHALER INH PRN (21:50)
[2024-05-27 22:16] LABS: C REACTIVE PROTEIN QUANTITATIV < 0.40 MG/DL (<1.0)
[2024-05-27 22:18] LABS: CHOLESTEROL LEVEL 192 MG/DL (<200); CHOLESTEROL RISK RATIO 3.28 (<5); HDL CHOLESTEROL 58.5 MG/DL (>40); LDL CHOLESTEROL 102.9 MG/DL (<100); NON-HDL-C 133.5 MG/DL; RHEUMATOID FACTOR QUANT 9.8 IU/ML (<14); TRIGLYCERIDES LEVEL 153 MG/DL (<150)
[2024-05-27 22:20] LABS: ERYTHROCYTE SEDIMENTATION RATE 11 mm/hr (0-30); HCG, SERUM QUALITATIVE NEGATIVE (NEGATIVE)
[2024-05-27 22:33] LABS: HEMOGLOBIN A1c 5.5 % (4.0-6.0)
[2024-05-28] MEDS: DOCUSATE SODIUM 100MG CAPSULE PO SCH (09:00)
[2024-05-28 09:25] LABS: PTT LUPUS TYPE ANTICOAG SCREEN 0.84 (0-1.20)
[2024-05-28] MEDS: ASPIRIN 81MG CHEW TABLET PO SCH (10:25)
[2024-05-28] MEDS: VITAMIN D 1,000 INTERNATIONAL UNITS TABLET PO SCH (10:25)
[2024-05-28] MEDS: hydroCHLOROthiazide 12.5 MG CAPSULE PO SCH (10:25)
[2024-05-28] MEDS: ATORVASTATIN 20 MG TAB PO SCH (10:25)
[2024-05-28] MEDS: ENOXAPARIN 40MG/0.4ML SYRINGE (J1650 PER 10MG) SC SCH (10:26)
[2024-05-28] MEDS: ACETAMINOPHEN 325 MG TAB PO PRN (10:28)
[2024-05-28] MEDS ORDERED: ACETAMINOPHEN *IV* 1,000 MG in IV 1 EA IV ONE (11:05)
[2024-05-28] MEDS ORDERED: SELF1KIT MC (11:12)
[2024-05-28] MEDS ORDERED: AMLO10TA PO (11:12)
[2024-05-28] MEDS ORDERED: FIORICET TAB PO ONE (11:15)
[2024-05-28] MEDS ORDERED: FIOR1CAP PO (11:16)
[2024-05-28] MEDS ORDERED: ATOR40TA75 PO (11:54)
[2024-05-28 14:17] VITALS: BP 127/65; TEMP 96.6; O2SAT 97
[2024-06-01 14:27] LABS: SSA SJOGRENS A <1.0 NEG AI (<1.0 NEG); SSB SJOGRENS B <1.0 NEG AI (<1.0 NEG)
[2024-06-01 23:52] LABS: CARDIOLIPIN IGA ANTIBODY < 2.0 APL-U/mL (<20.0); CARDIOLIPIN IGG ANTIBODY < 2.0 GPL-U/mL (<20.0); CARDIOLIPIN IGM ANTIBODY < 2.0 MPL-U/mL (<20.0)
[2024-06-02 12:57] LABS: ANA SCREEN, IFA NEGATIVE (NEGATIVE)
[2024-06-02 14:27] LABS: PROTEIN S ANTIGEN FREE 149 % normal (50-147); PROTEIN S ANTIGEN TOTAL 137 % normal (70-140)
== END 2024-05-28 14:54 | disposition home or self-care (01) ==
LOC: M ED 16:33 → M ED INP 16:34
PROVIDERS: ADMIT Student in an Organized Health Care Education/Training Program; ATTEND Student in an Organized Health Care Education/Training Program
DX: G45.9 Transient cerebral ischemic attack, unspecified (principal); G43.109 Migraine with aura, not intractable, without status migrainosus; I10 Essential (primary) hypertension; H53.47 Heteronymous bilateral field defects; R26.0 Ataxic gait; R53.81 Other malaise; E78.5 Hyperlipidemia, unspecified; F32.A Depression, unspecified; F19.21 Other psychoactive substance dependence, in remission; R00.1 Bradycardia, unspecified; I44.0 Atrioventricular block, first degree; E55.9 Vitamin D deficiency, unspecified; Z90.89 Acquired absence of other organs; Z98.891 History of uterine scar from previous surgery; Z98.890 Other specified postprocedural states; F17.210 Nicotine dependence, cigarettes, uncomplicated; Z88.5 Allergy status to narcotic agent; Z79.899 Other long term (current) drug therapy
CPT/HCPCS: 36415; 70450; 70544; 70547; 70551; 71045; 80047; 80048; 80061; 80076; 81240; 83036; 83690; 84703; 85025; 85240; 85245; 85246; 85300; 85301; 85302; 85305; 85306; 85610; 85652; 85730; 86036; 86038; 86140; 86147; 86235; 86431; 93005; 93041; 93306; 94760; 96372; 99285; J1650

== ENCOUNTER → 2024-06-16 | Outpatient (CLI) | payer OTHER ==
[~2024-06-16] MED LIST changes: +ACET650T15 PO; +AMLO10TA PO; +ATOR40TA75 PO; +D 50CAP2 PO; +FIOR1CAP PO; +IBUP200T46 PO; +SELF1KIT MC
== END ==
LOC: M WHC 15:27
PROVIDERS: ATTEND Nurse Practitioner Family
DX: Z12.31 Encounter for screening mammogram for malignant neoplasm of breast (principal); R92.323 Mammographic fibroglandular density, bilateral breasts

== ENCOUNTER → 2024-09-17 | Outpatient (REF) | payer OTHER ==
[2024-09-19 19:51] LABS: HPV APTIMA Not Detected (Not Detected)
== END ==
LOC: M SFHCWAGY 13:55
PROVIDERS: ATTEND Nurse Practitioner Family
DX: Z12.4 Encounter for screening for malignant neoplasm of cervix (principal); Z85.41 Personal history of malignant neoplasm of cervix uteri; R87.610 Atypical squamous cells of undetermined significance on cytologic smear of cervix (ASC-US)

== ENCOUNTER 2024-10-19 10:45 | Outpatient (RCR) | payer OTHER | END 2024-10-23 | LOC: M PT 10:45 | PROVIDERS: ATTEND Nurse Practitioner Family | DX: N39.3 Stress incontinence (female) (male) (principal) ==

== ENCOUNTER → 2024-11-10 | Outpatient (REF) | payer OTHER ==
[2024-11-10 16:42] LABS: BASO % 0.5 % (0.0-1.0); EOS # 0.4 10^3/uL (0.0-0.5); EOS % 6.5 % (0.0-3.0); HEMATOCRIT 33.8 % (36.0-47.0); HEMOGLOBIN 11.6 g/dl (12.0-15.5); LYMPH # 2.2 10^3/uL (1.5-5.0); LYMPH % 36.7 % (24.0-44.0); MEAN CORPUSCULAR HEMOGLOBIN 32.1 pg (27.0-33.0); MEAN CORPUSCULAR HGB CONC 34.3 g/dl (32.0-36.5); MEAN CORPUSCULAR VOLUME 93.6 fl (80.0-96.0); MONO # 0.5 10^3/uL (0.0-0.8); MONO % 8.2 % (2.0-8.0); NEUTROPHILS # 2.9 10^3/uL (1.5-8.5); NEUTROPHILS % 47.9 % (36.0-66.0); PLATELET COUNT, AUTOMATED 173 10^3/uL (150-450); RED BLOOD COUNT 3.61 10^6/uL (4.00-5.40)
[2024-11-10 16:57] LABS: ALKALINE PHOSPHATASE 72 U/L (35-104); ALT/SGPT 17 U/L (7.0-40); AST/SGOT 14 U/L (<34); BILIRUBIN,TOTAL 0.3 MG/DL (0.3-1.2); BLOOD UREA NITROGEN 12 MG/DL (9-23); CALCIUM LEVEL 8.9 MG/DL (8.5-10.1); CARBON DIOXIDE LEVEL 26 MMOL/L (20-31); CHLORIDE LEVEL 103 MMOL/L (98-107); CHOLESTEROL LEVEL 156 MG/DL (<200); CHOLESTEROL RISK RATIO 2.98 (<5); GLOMERULAR FILTRATION RATE > 60.0 (>51); GLUCOSE, FASTING 97 MG/DL (60-100); HDL CHOLESTEROL 52.3 MG/DL (>40); LDL CHOLESTEROL 61.9 MG/DL (<100); MAGNESIUM LEVEL 1.8 MG/DL (1.8-2.4); NON-HDL-C 103.7 MG/DL; POTASSIUM SERUM 4.1 MMOL/L (3.5-5.1); SODIUM LEVEL 141 MMOL/L (136-145); TOTAL PROTEIN 7.3 G/DL (5.7-8.2); TRIGLYCERIDES LEVEL 209 MG/DL (<150)
== END ==
LOC: M LAB REF 15:14
PROVIDERS: ATTEND Nurse Practitioner Family
DX: E66.3 Overweight (principal); E78.5 Hyperlipidemia, unspecified; Z83.79 Family history of other diseases of the digestive system

== ENCOUNTER 2024-11-16 09:52 | Outpatient (RCR) | payer OTHER | END 2024-11-23 | LOC: M PT 09:52 | PROVIDERS: ATTEND Nurse Practitioner Family | DX: N39.3 Stress incontinence (female) (male) (principal) ==

== ENCOUNTER 2024-12-07 09:46 | Outpatient (RCR) | payer OTHER ==
[~2024-12-07 09:46] MED LIST changes: +AMLO-751 PO; -AMLO10TA PO
== END 2024-12-23 ==
LOC: M PT 09:46
PROVIDERS: ATTEND Nurse Practitioner Family
DX: N39.3 Stress incontinence (female) (male) (principal)

== ENCOUNTER → 2024-12-08 | Outpatient (REF) | payer OTHER ==
[~2024-12-08] MED LIST changes: -AMLO-751 PO; +AMLO10TA PO
[2024-12-08 14:59] LABS: BASO % 0.7 % (0.0-1.0); EOS # 0.2 10^3/uL (0.0-0.5); EOS % 3.8 % (0.0-3.0); HEMATOCRIT 34.2 % (36.0-47.0); HEMOGLOBIN 11.7 g/dl (12.0-15.5); LYMPH # 2.3 10^3/uL (1.5-5.0); MEAN CORPUSCULAR HEMOGLOBIN 31.9 pg (27.0-33.0); MEAN CORPUSCULAR HGB CONC 34.2 g/dl (32.0-36.5); MEAN CORPUSCULAR VOLUME 93.2 fl (80.0-96.0); MONO # 0.4 10^3/uL (0.0-0.8); MONO % 6.5 % (2.0-8.0); NEUTROPHILS # 2.9 10^3/uL (1.5-8.5); NEUTROPHILS % 49.7 % (36.0-66.0); PLATELET COUNT, AUTOMATED 198 10^3/uL (150-450); RED BLOOD COUNT 3.67 10^6/uL (4.00-5.40); WHITE BLOOD COUNT 5.8 10^3/uL (4.0-10.0)
[2024-12-08 15:01] LABS: PERCENT SATURATION 24.3 % (13.2-45.0)
[2024-12-08 15:03] LABS: FERRITIN 21.1 NG/ML (7.3-270.7)
== END ==
LOC: M LAB REF 14:28
PROVIDERS: ATTEND Nurse Practitioner Family
DX: D64.9 Anemia, unspecified (principal)

== ENCOUNTER → 2024-12-30 | Outpatient (CLI) | payer OTHER ==
[~2024-12-30] MED LIST changes: +AMLO-751 PO; -AMLO10TA PO; +E-Z-GAS II EFFERVESCENT PACKET (SODIUM BICARB./CITRIC ACID/SIMETHICONE) As Ordered ONE; +E-Z-HD 98% w/w 340GM SUSP BTL As Ordered ONE; +E-Z-PAQUE 96% w/w SUSP 176GM BTL As Ordered ONE
== END ==
LOC: M RAD 10:10
PROVIDERS: ATTEND Physician Assistant Medical
DX: R13.10 Dysphagia, unspecified (principal)

== ENCOUNTER → 2025-05-05 | Outpatient (CLI) | payer OTHER ==
[~2025-05-05] MED LIST changes: +ACET-1515 PO; -ACET650T15 PO; -E-Z-GAS II EFFERVESCENT PACKET (SODIUM BICARB./CITRIC ACID/SIMETHICONE) As Ordered ONE; -E-Z-HD 98% w/w 340GM SUSP BTL As Ordered ONE; -E-Z-PAQUE 96% w/w SUSP 176GM BTL As Ordered ONE; +FERR325T19 PO; +HYDR12.510 PO; -HYDR12CA PO; +LISI20TA35 PO; +LUMA21CA PO; +TRAZ-252 PO; +VITA200032 PO
[2025-05-05 15:08] LABS: PLATELET COUNT, AUTOMATED 181 10^3/uL (150-450)
[2025-05-05 15:44] LABS: ALT/SGPT 23 U/L (7.0-40); AST/SGOT 21 U/L (<34); CALCIUM LEVEL 9.4 MG/DL (8.5-10.1); CARBON DIOXIDE LEVEL 28 MMOL/L (20-31); CHLORIDE LEVEL 105 MMOL/L (98-107); CHOLESTEROL LEVEL 124 MG/DL (<200); CHOLESTEROL RISK RATIO 2.31 (<5); CREATININE FOR GFR 0.74 MG/DL (0.55-1.30); GLOMERULAR FILTRATION RATE > 90.0 (>51); LDL CHOLESTEROL 39.7 MG/DL (<100); NON-HDL-C 70.5 MG/DL; POTASSIUM SERUM 4.0 MMOL/L (3.5-5.1); SODIUM LEVEL 143 MMOL/L (136-145); TRIGLYCERIDES LEVEL 154 MG/DL (<150)
[2025-05-05 15:45] LABS: THYROXINE (T4) 8.3 UG/DL (4.5-10.9)
== END ==
LOC: M LAB 13:45
PROVIDERS: ATTEND Nurse Practitioner Family
DX: F31.0 Bipolar disorder, current episode hypomanic (principal)

== ENCOUNTER → 2025-05-05 | Outpatient (CLI) | payer OTHER | LOC: M RAD 13:43 | PROVIDERS: ATTEND Nurse Practitioner Family | DX: Z12.2 Encounter for screening for malignant neoplasm of respiratory organs (principal); F17.210 Nicotine dependence, cigarettes, uncomplicated; M25.572 Pain in left ankle and joints of left foot; F31.0 Bipolar disorder, current episode hypomanic ==